=== PATIENT | female | born 1970 | race Caucasian/White ===

== ENCOUNTER 2016-03-20 13:59 | Emergency (ER) | payer OTHER ==
[2016-03-20] MEDS ORDERED: METOCLOPRAMIDE INJ 10MG/2ML VIAL (J2765) As Ordered ONE (15:01)
[2016-03-20] MEDS ORDERED: diphenhydrAMINE INJ 50MG/ML VIAL (J1200) As Ordered ONE (15:02)
[2016-03-20] MEDS ORDERED: GASTROGRAFIN SOLUTION 30ML (Q9963) As Ordered ONE (15:10)
[2016-03-20 15:29] LABS: BASO % 0.3 % (0.0-1.0); EOS # 0.1 K/mm3 (0.0-0.50); EOS % 0.9 % (0.0-3.0); LARGE UNSTAINED CELL # 0.2 K/mm3 (0.0-0.4); LARGE UNSTAINED CELL % 1.7 % (0.0-4.0); LYMPH # 1.6 K/mm3 (1.5-4.5); LYMPH % 17.7 % (24.0-44.0); MEAN CORPUSCULAR HEMOGLOBIN 30.9 pg (27.0-33.0); MEAN CORPUSCULAR HGB CONC 33.7 g/dl (32.0-36.5); MEAN CORPUSCULAR VOLUME 91.8 fl (80.0-96.0); MONO # 0.4 K/mm3 (0.0-0.8); MONO % 4.6 % (0.0-5.0); NEUTROPHILS # 6.9 K/mm3 (1.8-7.7); NEUTROPHILS % 74.7 % (36.0-66.0); PLATELET COUNT, AUTOMATED 223 k/mm3 (150-450); RED CELL DISTRIBUTION WIDTH 12.3 % (11.5-14.5); WHITE BLOOD COUNT 9.2 K/mm3 (4.0-10.0)
[2016-03-20 15:51] LABS: ALBUMIN 3.5 GM/DL (3.2-5.2); ALBUMIN/GLOBULIN RATIO 0.95 (1.00-1.93); ALKALINE PHOSPHATASE 71 U/L (45-117); ALT/SGPT 13 U/L (12-78); AMYLASE 61 U/L (25-115); ANION GAP 6 MEQ/L (8-16); AST/SGOT 9 U/L (15-37); BILIRUBIN,DIRECT < 0.1 MG/DL (0.0-0.2); BILIRUBIN,TOTAL 0.3 MG/DL (0.2-1.0); BLOOD UREA NITROGEN 6 MG/DL (7-18); CALCIUM LEVEL 8.6 MG/DL (8.5-10.1); CARBON DIOXIDE LEVEL 27 MEQ/L (21-32); CHLORIDE LEVEL 108 MEQ/L (98-107); CREATININE FOR GFR 0.66 MG/DL (0.55-1.02); GLOMERULAR FILTRATION RATE > 60.0 (>58); GLUCOSE, FASTING 99 MG/DL (70-105); POTASSIUM SERUM 3.3 MEQ/L (3.5-5.1); SODIUM LEVEL 141 MEQ/L (136-145); TOTAL PROTEIN 7.2 GM/DL (6.4-8.2)
[2016-03-20] MEDS ORDERED: ISOVUE-370 76% 100ML VIAL (Q9967) As Ordered ONE (16:43)
--- NOTE | 2016-03-20 17:44 | REP ---
CT study of the abdomen pelvis with IV and oral contrast: History: Abdominal pain. Comparison study: 11/29/2011. CT contrast dose: 100 mL of Isovue-[address] findings: Digital appraiser auditor views of the abdomen demonstrate tubal ligation bands bilaterally in the pelvis. Bowel gas pattern is unremarkable. The lung bases are clear. The liver and the spleen are normal in size homogeneous in texture. Gallbladder is unremarkable. No pancreatic abnormality is observed. No adrenal lesion is seen. The kidneys enhance symmetrically are morphologically intact. No retroperitoneal mass or adenopathy is seen. Normal caliber aorta is seen. Small and large bowel loops are normal in the upper abdomen. Pelvic CT images demonstrate a loop of left colon at the descending colon splenic flexure junction involving mural thickening and pericolonic fat stranding. There are two or three diverticula seen in this segment and the findings are compatible with diverticulitis. There is no visible abscess. There is one droplet of contained air in the pericolonic mesenteric fat. There is a cyst in the left ovary measuring 3.4 cm in greatest diameter. A smaller cystic area seen in the right ovary. A retroverted retroflexed uterus is seen. Urinary bladder is unremarkable. A small quantity of cul-de-sac fluid is seen. No abdominal wall defect is seen. Bone window settings show no bony destructive lesion. Impression: CT findings compatible with acute diverticulitis of the left colon at the descending sigmoid junction without evidence of abscess or free air. Moderate mural thickening and pericolonic edema are seen. Signed by Dewayne Lazo MD 03/21/2016 09:54 A
[2016-03-20] MEDS ORDERED: CIPROFLOXACIN 500 MG TAB As Ordered ONE (17:56)
[2016-03-20] MEDS ORDERED: metroNIDAZOLE (FLAGYL) 250 MG TAB As Ordered ONE (17:56)
--- NOTE | 2016-03-20 18:25 | EDDOCDS ---
Physician Documentation [facility] Name: Traci Gonzalez Age: 45 yrs Sex: Female : 1970 Arrival Date: 03/20/2016 Time: 13:59 Bed I4 / M4 Private MD: Garret Jones R. Disposition: 03/20/16 17:53 Discharged to Home/Self Care. Impression: Diverticulitis of large intestine without perforation or abscess without bleeding. - Condition is Stable. - Discharge Instructions: Clear Liquid Diet, Diverticulitis. - Prescriptions for Cipro 500 mg Oral Tablet - take 1 tablet by ORAL route every 12 hours for 10 days; 19 tablet. Flagyl 500 mg Oral Tablet - take 1 tablet by ORAL route every 8 hours for 10 days; 29 tablet. Ultram 50 mg Oral Tablet - take 1 tablet by ORAL route every 6 hours As needed MDD: 4 tabs; 20 tablet. - Medication Reconciliation, Local Pharmacy Hours, Work Release Form - 3 day form. - Follow up: Arturo Wayne DO; When: 1 week; Reason: Recheck today's complaints. Follow up: Emergency Department; When: As needed; Reason: Fever > 102F, Worsening of conditions. - Problem is new. - Symptoms have improved. - Notes: may use tylenol or ibuprofen as needed for pain Historical: - Allergies: PENICILLINS; - Home Meds: 1. atorvastatin 40 mg oral tab 1 tab once daily - PMHx: Hypercholesterolemia; - PSHx: Appendectomy; Tubal ligation; - Social history: Smoking status: Patient states was never smoker of tobacco. No barriers to communication noted, The patient speaks fluent Zimbabwean, Speaks appropriately for age. - Family history: Not pertinent. - : The pt / caregiver states he / she is not on anticoagulants. Home medication list is obtained from the patient. - Exposure Risk Screening:: None identified. 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 1 in. (154.94 cm) (R); Pain 6/10; 18:07 BP 141 / 95; Pulse 70; Resp 20; Temp 97.3(O); Pulse Ox 97% on R/A; Pain 4/10; jml1 14:01 Body Mass Index 24.19 (58.06 kg, 154.94 cm) gr2 MDM: 14:53 NS 0.9% 1000 ml IV at bolus once ordered. btw 14:53 IV Saline Lock ordered. btw 14:53 Undress patient appropriately for examination ordered. btw 14:53 Metoclopramide 20 mg IV at 80 mg/hr once over 15 mins ordered. btw 14:53 diphenhydrAMINE 50 mg IVP once ordered. btw 14:54 CT ABD & PELVIS: IV and Oral Contrast Ordered. EDMS 14:54 NOTHING BY MOUTH+DIET ordered. EDMS 14:54 Amylase Ordered. EDMS 14:54 Basic Metabolic Profile Ordered. EDMS 14:54 CBC with Diff Ordered. EDMS 14:54 Lipase Ordered. EDMS 14:55 Liver Profile Ordered. EDMS 14:55 Urinalysis Ordered. EDMS 14:55 Urine Culture Ordered. EDMS 15:28 Diatrizoate Meglumine & Sodium Liquid 10 ml PO once; mix in 290cc of water ordered. jmk 15:59 Basic Metabolic Profile Reviewed. btw 15:59 CBC with Diff Reviewed. btw 15:59 Liver Profile Reviewed. btw 15:59 Urinalysis Reviewed. btw 15:59 Amylase Reviewed. btw 15:59 Lipase Reviewed. btw 16:43 Financial registration complete. zo 16:49 [facility] Payment Agreement was scanned into [employer] and attached to record. zo 17:46 Ciprofloxacin 500 mg PO once ordered. ar2 17:46 metroNIDAZOLE 500 mg PO once ordered. ar2 Administered Medications: 15:15 Drug: Diatrizoate Meglumine & Sodium 10 ml [diatrizoate meglumine and diat.sodium 66 jmk %-10 % oral solution (10 mL)] Route: PO; 15:27 Drug: NS 0.9% 1000 ml [sodium chloride 0.9 % intravenous solution] Route: IV; Rate: kc3 bolus; Site: right antecubital; 15:27 Drug: Metoclopramide 20 mg [metoclopramide 5 mg/mL injection solution] Route: IV; Rate: kc3 80 mg/hr; Infused Over: 15 mins; Site: right antecubital; 15:56 Follow up: IV Status: Completed infusion kc3 15:27 Drug: diphenhydrAMINE 50 mg [diphenhydramine 50 mg/mL injection solution (1 mL)] Route: kc3 IVP; Site: right antecubital; 15:57 Follow up: Response: Pain is decreased kc3 18:17 Drug: metroNIDAZOLE 500 mg [metronidazole 250 mg tablet (2 tabs)] Route: PO; kc3 18:18 Drug: Ciprofloxacin 500 mg [ciprofloxacin 500 mg tablet (1 tabs)] Route: PO; kc3 Signatures: Dispatcher [employer] EDAnupam Lucio,RN RN Rosanna Mcwilliams RN RN ck1 Ruddy Sheth Aaron, PA-C PAMayra ar2 Jayden Garcia PA PA btw Crane, Kelsi,RN RN kc3 The chart was reviewed and I authenticate all verbal orders and agree with the evaluation and treatment provided.Attachments: 16:49 [facility] Payment Agreement zo MTDD
--- NOTE | 2016-03-20 18:25 | EDDOCDS ---
Nurse's Notes [facility] Name: Traci Gonzalez Age: 45 yrs Sex: Female : 1970 Arrival Date: 03/20/2016 Time: 13:59 Bed I4 / M4 Private MD: Garret Jones R. Diagnosis: Diverticulitis of large intestine without perforation or abscess without bleeding Presentation: 03/20 14:03 Presenting complaint: Patient states: Lower abdominal pain since Friday. Sent from [address] Risk factors: the patient reports no vaginal bleeding. Adult Sepsis Screening: The patient does not have new or worsening altered mentation. Patient's respiratory rate is less than 22. Systolic blood pressure is greater than 100. Patient has a qSOFA score of 0- Negative Sepsis Screen. Suicide/Homicide risk assessment- the patient denies having any suicidal and/or homicidal ideations and does not present with any other emotional, behavioral or mental health complaints. 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 Transition of care: patient was not received from another setting of care. 14:03 Acuity: ABBEY Level 3 [facility] 14:03 Method Of Arrival: Walkin/Carried/Asstd [facility] Triage Assessment: 14:05 General: Appears in no apparent distress, comfortable, Behavior is appropriate for age, ck1 cooperative. Pain: Location: right lower quadrant and left lower quadrant Pain currently is 6 out of 10 on a pain scale. HIV screening NA for this visit Offered previously. Neurological: No deficits noted. Respiratory: Respiratory effort is unlabored, Respiratory pattern is regular, symmetrical. GI: Denies constipation, diarrhea, nausea, vomiting. : Denies burning with urination, urinary frequency, vaginal bleeding. Derm: Skin is pink, warm & dry. LOOM CHECKER: 14:05 LMP 03/14/2016 [facility] Historical: - Allergies: PENICILLINS; - Home Meds: 1. atorvastatin 40 mg oral tab 1 tab once daily - PMHx: Hypercholesterolemia; - PSHx: Appendectomy; Tubal ligation; - Social history: Smoking status: Patient states was never smoker of tobacco. No barriers to communication noted, The patient speaks fluent Turkish, Speaks appropriately for age. - Family history: Not pertinent. - : The pt / caregiver states he / she is not on anticoagulants. Home medication list is obtained from the patient. - Exposure Risk Screening:: None identified. Screenin:28 Screening information is obtained from the patient. Fall risk: No risks identified. kc3 Assistance ADL's: requires no assistance with activities of daily living. Abuse/DV Screen: The patient / caregiver reports he/she is: not in a situation that causes fear, pain or injury. Nutritional screening: No deficits noted. Advance Directives: Currently, there is no health care proxy. home support is adequate. Assessment: 15:27 General: Appears in no apparent distress, comfortable, Behavior is appropriate for age, kc3 cooperative. Pain: Location: abdomen Pain currently is 7 out of 10 on a pain scale. Neurological: Level of Consciousness is awake, alert, obeys commands, Oriented to person, place, time. Respiratory: Airway is patent Respiratory effort is even, unlabored. GI: Abdomen is flat, Bowel sounds present X 4 quads. Abd is soft Abd is tender to palpation. Derm: Skin is pink, warm & dry. 16:45 General: Appears in no apparent distress, comfortable, Behavior is appropriate for age, kc3 cooperative. Pain: Location: abdomen. Neurological: Level of Consciousness is awake, alert, obeys commands, Oriented to person, place, time. Respiratory: Respiratory effort is even, unlabored. Derm: Skin is pink, warm & dry. 17:30 Reassessment: Patient appears in no apparent distress at this time. Patient states kc3 feeling better. 18:19 General: Appears in no apparent distress, comfortable, Behavior is appropriate for age, kc3 cooperative. Neurological: Level of Consciousness is awake, alert, obeys commands. Respiratory: Respiratory effort is even, unlabored. Derm: Skin is pink, warm & dry. Vital Signs: 14:01 BP 145 / 85; Pulse 80; Resp 18 S; Temp 98.7(O); Pulse Ox 98% on R/A; Weight 58.06 kg gr2 (R); Height 5 ft. 1 in. (154.94 cm) (R); Pain 6/10; 18:07 BP 141 / 95; Pulse 70; Resp 20; Temp 97.3(O); Pulse Ox 97% on R/A; Pain 4/10; jml1 14:01 Body Mass Index 24.19 (58.06 kg, 154.94 cm) gr2 Vitals: 14:01 Log In Time: March 20, 2016 at 14:01. gr2 ED Course: 14:00 Patient visited by Cl Noonan. gr2 14:00 Patient moved to Waiting gr2 14:01 Garret Jones is Private Physician. gr2 14:02 Patient visited by Cl Noonan. gr2 14:02 Patient moved to Pre RCE gr2 14:04 Triage Initiated ck1 14:36 Patient moved to Triage 2 jf3 14:47 Jayden Garcia PA is PHCP. btw 14:47 Brendon Rodriguez MD is Attending Physician. btw 14:47 Patient visited by Jayden Garcia PA. btw 14:54 Patient moved to I4 / M4 nb2 15:26 Amylase Sent. kc3 15:26 Basic Metabolic Profile Sent. kc3 15:26 CBC with Diff Sent. kc3 15:26 Lipase Sent. kc3 15:26 Liver Profile Sent. kc3 15:26 Urinalysis Sent. kc3 15:26 Urine Culture Sent. kc3 15:28 Patient visited by Beth Jacome RN. kc3 15:28 The patient / caregiver is instructed regarding the plan of care and ED course. kc3 15:28 Inserted saline lock: 20 gauge in right antecubital area and blood collected. The kc3 patient tolerated the procedure well. Labs drawn. (by ED staff). Sent per order to lab. 16:05 PHCP role handed off by Jayden Garcia PA ar2 16:05 Alphonse Perla PA-C is PHCP. ar2 16:06 Patient visited by Beth Jacome RN. kc3 16:47 Patient name changed from Culleen\S\\S\Mandigo\S\ to Culleen\S\ \S\Mandigo. EDMS 16:49 [facility] Payment Agreement was scanned into [employer] and attached to record. zo 17:12 Patient visited by Melvin Aguilar. jml1 17:53 Arturo Wayne DO is Referral Physician. ar2 18:07 Patient visited by Melvin Aguilar. jml1 18:18 CT ABD & PELVIS: IV and Oral Contrast Returned. EDMS 18:19 Discontinued IV lock intact, bleeding controlled, pressure dressing applied, No kc3 redness/swelling at site. No procedures done that require assistance. Administered Medications: 15:15 Drug: Diatrizoate Meglumine & Sodium 10 ml [diatrizoate meglumine and diat.sodium 66 jmk %-10 % oral solution (10 mL)] Route: PO; 15:27 Drug: NS 0.9% 1000 ml [sodium chloride 0.9 % intravenous solution] Route: IV; Rate: kc3 bolus; Site: right antecubital; 15:27 Drug: Metoclopramide 20 mg [metoclopramide 5 mg/mL injection solution] Route: IV; Rate: kc3 80 mg/hr; Infused Over: 15 mins; Site: right antecubital; 15:56 Follow up: IV Status: Completed infusion kc3 15:27 Drug: diphenhydrAMINE 50 mg [diphenhydramine 50 mg/mL injection solution (1 mL)] Route: kc3 IVP; Site: right antecubital; 15:57 Follow up: Response: Pain is decreased kc3 18:17 Drug: metroNIDAZOLE 500 mg [metronidazole 250 mg tablet (2 tabs)] Route: PO; kc3 18:18 Drug: Ciprofloxacin 500 mg [ciprofloxacin 500 mg tablet (1 tabs)] Route: PO; kc3 Order Results: Lab Order: Amylase; SPEC'M 03/20/16 15:18 Test: AMYLASE; Value: 61; Range: 25-115; Units: U/L; Status: F Lab Order: Basic Metabolic Profile; SPEC'M 03/20/16 15:18 Test: GLUCOSE, FASTING; Value: 99; Range: 70-105; Units: MG/DL; Status: F Test: BLOOD UREA NITROGEN; Value: 6; Range: 7-18; Abnormal: Below low normal; Units: MG/DL; Status: F Test: CREATININE FOR GFR; Value: 0.66; Range: 0.55-1.02; Units: MG/DL; Status: F Test: GLOMERULAR FILTRATION RATE; Value: > 60.0; Range: >58; Status: F Test: SODIUM LEVEL; Value: 141; Range: 136-145; Units: MEQ/L; Status: F Test: POTASSIUM SERUM; Value: 3.3; Range: 3.5-5.1; Abnormal: Below low normal; Units: MEQ/L; Status: F Test: CHLORIDE LEVEL; Value: 108; Range: 98-107; Abnormal: Above high normal; Units: MEQ/L; Status: F Test: CARBON DIOXIDE LEVEL; Value: 27; Range: 21-32; Units: MEQ/L; Status: F Test: ANION GAP; Value: 6; Range: 8-16; Abnormal: Below low normal; Units: MEQ/L; Status: F Test: CALCIUM LEVEL; Value: 8.6; Range: 8.5-10.1; Units: MG/DL; Status: F Test Note: ; Units are mL/min/1.73 m2 Chronic Kidney Disease Staging per NKF: Stage I & II GFR >=60 Normal to Mildly Decreased Stage III GFR 30-59 Moderately Decreased Stage IV GFR 15-29 Severely Decreased Stage V GFR <15 Very Little GFR Left ESRD GFR <15 on DIGITAL MEDIA REPRESENTATIVE Lab Order: CBC with Diff; SPEC'M 03/20/16 15:18 Test: WHITE BLOOD COUNT; Value: 9.2; Range: 4.0-10.0; Units: K/mm3; Status: F Test: RED BLOOD COUNT; Value: 4.11; Range: 4.00-5.40; Units: M/mm3; Status: F Test: HEMOGLOBIN; Value: 12.7; Range: 12.0-16.0; Units: g/dl; Status: F Test: HEMATOCRIT; Value: 37.7; Range: 36.0-47.0; Units: %; Status: F Test: MEAN CORPUSCULAR VOLUME; Value: 91.8; Range: 80.0-96.0; Units: fl; Status: F Test: MEAN CORPUSCULAR HEMOGLOBIN; Value: 30.9; Range: 27.0-33.0; Units: pg; Status: F Test: MEAN CORPUSCULAR HGB CONC; Value: 33.7; Range: 32.0-36.5; Units: g/dl; Status: F Test: RED CELL DISTRIBUTION WIDTH; Value: 12.3; Range: 11.5-14.5; Units: %; Status: F Test: PLATELET COUNT, AUTOMATED; Value: 223; Range: 150-450; Units: k/mm3; Status: F Test: NEUTROPHILS %; Value: 74.7; Range: 36.0-66.0; Abnormal: Above high normal; Units: %; Status: F Test: LYMPH %; Value: 17.7; Range: 24.0-44.0; Abnormal: Below low normal; Units: %; Status: F Test: MONO %; Value: 4.6; Range: 0.0-5.0; Units: %; Status: F Test: EOS %; Value: 0.9; Range: 0.0-3.0; Units: %; Status: F Test: BASO %; Value: 0.3; Range: 0.0-1.0; Units: %; Status: F Test: LARGE UNSTAINED CELL %; Value: 1.7; Range: 0.0-4.0; Units: %; Status: F Test: NEUTROPHILS #; Value: 6.9; Range: 1.8-7.7; Units: K/mm3; Status: F Test: LYMPH #; Value: 1.6; Range: 1.5-4.5; Units: K/mm3; Status: F Test: MONO #; Value: 0.4; Range: 0.0-0.8; Units: K/mm3; Status: F Test: EOS #; Value: 0.1; Range: 0.0-0.50; Units: K/mm3; Status: F Test: BASO #; Value: 0.0; Range: 0.0-0.2; Units: K/mm3; Status: F Test: LARGE UNSTAINED CELL #; Value: 0.2; Range: 0.0-0.4; Units: K/mm3; Status: F Lab Order: Lipase; SPEC' 03/20/16 15:18 Test: LIPASE; Value: 207; Range: 73-393; Units: U/L; Status: F Lab Order: Liver Profile; SPEC'M 03/20/16 15:18 Test: AST/SGOT; Value: 9; Range: 15-37; Abnormal: Below low normal; Units: U/L; Status: F Test: ALT/SGPT; Value: 13; Range: 12-78; Units: U/L; Status: F Test: ALKALINE PHOSPHATASE; Value: 71; Range: 45-117; Units: U/L; Status: F Test: BILIRUBIN,TOTAL; Value: 0.3; Range: 0.2-1.0; Units: MG/DL; Status: F Test: BILIRUBIN,DIRECT; Value: < 0.1; Range: 0.0-0.2; Units: MG/DL; Status: F Test: TOTAL PROTEIN; Value: 7.2; Range: 6.4-8.2; Units: GM/DL; Status: F Test: ALBUMIN; Value: 3.5; Range: 3.2-5.2; Units: GM/DL; Status: F Test: ALBUMIN/GLOBULIN RATIO; Value: 0.95; Range: 1.00-1.93; Abnormal: Below low normal; Status: F Lab Order: Urinalysis; SPEC'M 03/20/16 15:16 Test: APPEARANCE, URINE; Value: CLEAR; Range: CLEAR; Status: F Test: COLOR, URINE; Value: STRAW; Range: YELLOW; Status: F Test: PH,URINE; Value: 7.0; Range: 5.0-9.0; Units: UNITS; Status: F Test: SPECIFIC GRAVITY URINE AUTO; Value: 1.004; Range: 1.002-1.035; Status: F Test: PROTEIN, URINE AUTO; Value: NEGATIVE; Range: NEGATIVE; Units: mg/dL; Status: F Test: GLUCOSE, URINE (UA) AUTO; Value: 1+; Range: NEGATIVE; Abnormal: Above high normal; Units: mg/dL; Status: F Test: KETONE, URINE AUTO; Value: NEGATIVE; Range: NEGATIVE; Units: mg/dL; Status: F Test: UROBILINOGEN, URINE AUTO; Value: 0.2; Range: 0.0-2.0; Units: mg/dL; Status: F Test: BILIRUBIN, URINE AUTO; Value: NEGATIVE; Range: NEGATIVE; Status: F Test: NITRITE, URINE AUTO; Value: NEGATIVE; Range: NEGATIVE; Status: F Test: LEUKOCYTE ESTERASE, URINE AUTO; Value: TRACE; Range: NEGATIVE; Abnormal: Above high normal; Status: F Test: BLOOD, URINE BLOOD; Value: 1+; Range: NEGATIVE; Abnormal: Above high normal; Status: F Test: WBC, URINE AUTO; Value: 2; Range: 0-3; Units: /HPF; Status: F Test: RBC, URINE AUTO; Value: 1; Range: 0-3; Units: /HPF; Status: F Test: BACTERIA, URINE AUTO; Value: 1+; Range: NEGATIVE; Abnormal: Above high normal; Status: F Test: SQUAMOUS EPITHELIAL CELL UR AU; Value: 3; Range: 0-6; Units: /HPF; Status: F Test: MUCUS, URINE; Value: SMALL; Range: NEGATIVE; Status: F Test: HYALINE CAST, URINE AUTO; Value: 0; Range: 0-1; Units: /LPF; Status: F Radiology Order: CT ABD & PELVIS: IV and Oral Contrast Test: CT ABD & PELVIS: IV and Oral Contrast REASON FOR EXAMINATION: Abdomen Pain; CT study of the abdomen pelvis with IV and oral contrast:; ; History: Abdominal pain.; ; Comparison study: 11/29/2011.; ; CT contrast dose: 100 mL of Isovue-370 is administered intravenously.; ; CT findings: Digital stretch box tender views of the abdomen demonstrate tubal ligation bands; bilaterally in the pelvis. Bowel gas pattern is unremarkable. The lung bases; are clear. The liver and the spleen are normal in size homogeneous in texture.; Gallbladder is unremarkable. No pancreatic abnormality is observed. No adrenal; lesion is seen. The kidneys enhance symmetrically are morphologically intact.; No retroperitoneal mass or adenopathy is seen. Normal caliber aorta is seen.; Small and large bowel loops are normal in the upper abdomen.; ; Pelvic CT images demonstrate a loop of left colon at the descending colon splenic; flexure junction involving mural thickening and pericolonic fat stranding. There; are two or three diverticuli seen in this segment and the findings are compatible; with diverticulitis. There is no visible abscess. There is one droplet of; contained air in the pericolonic mesenteric fat.; ; There is a cyst in the left ovary measuring 3.4 cm in greatest diameter. A; smaller cystic area seen in the right ovary. A retroverted retroflexed uterus is; seen. Urinary bladder is unremarkable. A small quantity of cul-de-sac fluid is; seen.; ; No abdominal wall defect is seen. Bone window settings show no bony destructive; lesion.; ; Impression:; ; CT findings compatible with acute diverticulitis of the left colon at the; descending sigmoid junction without evidence of abscess or free air. Moderate; mural thickening and pericolonic edema are seen.; ; ; ; ; Unreviewed; Outcome: 17:53 Discharge ordered by Provider. ar2 18:20 Discharge Assessment: Patient awake, alert and oriented x 3. No cognitive and/or kc3 functional deficits noted. Patient verbalized understanding of disposition instructions. patient administered narcotics - no. The following High Risk Discharge criteria are identified: None. Discharged to home ambulatory. Condition: stable. Discharge instructions given to patient, Instructed on discharge instructions, follow up and referral plans. medication usage, Demonstrated understanding of instructions, medications, Pt was receptive of discharge instructions/ teaching. Prescriptions given X 3. CT Study completed. Property :Personal belongings accompany Pt. 18:24 Patient left the ED. kc3 Signatures: Dispatcher [employer] EDMS Anupam Vines,RN RN jmk Rosanna Koenig,RN RN ck1 Ruddy Sheth Aaron PA-C PA-Basilio [email or web address] Jayden Garcia PA PA btw Traver, Jamie jml1 Cl Noonan2 Beth Jacome RN RN kc3 Tyrone Vega,RN RN jf3 Margie Thomas2 ZENIA
--- NOTE | 2016-03-20 18:50 | EDDOCDS ---
Physician Documentation [facility] Name: Traci Gonzalez Age: 45 yrs Sex: Female : 1970 Arrival Date: 03/20/2016 Time: 13:59 Bed I4 / M4 Private MD: Garret Jones R. Disposition: 03/20/16 17:53 Discharged to Home/Self Care. Impression: Diverticulitis of large intestine without perforation or abscess without bleeding. - Condition is Stable. - Discharge Instructions: Clear Liquid Diet, Diverticulitis. - Prescriptions for Cipro 500 mg Oral Tablet - take 1 tablet by ORAL route every 12 hours for 10 days; 19 tablet. Flagyl 500 mg Oral Tablet - take 1 tablet by ORAL route every 8 hours for 10 days; 29 tablet. Ultram 50 mg Oral Tablet - take 1 tablet by ORAL route every 6 hours As needed MDD: 4 tabs; 20 tablet. - Medication Reconciliation, Local Pharmacy Hours, Work Release Form - 3 day form. - Follow up: Arturo Wayne DO; When: 1 week; Reason: Recheck today's complaints. Follow up: Emergency Department; When: As needed; Reason: Fever > 102F, Worsening of conditions. - Problem is new. - Symptoms have improved. - Notes: may use tylenol or ibuprofen as needed for pain Historical: - Allergies: PENICILLINS; - Home Meds: 1. atorvastatin 40 mg oral tab 1 tab once daily - PMHx: Hypercholesterolemia; - PSHx: Appendectomy; Tubal ligation; - Social history: Smoking status: Patient states was never smoker of tobacco. No barriers to communication noted, The patient speaks fluent Gibraltarian, Speaks appropriately for age. - Family history: Not pertinent. - : The pt / caregiver states he / she is not on anticoagulants. Home medication list is obtained from the patient. - Exposure Risk Screening:: None identified. 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 1 in. (154.94 cm) (R); Pain 6/10; 18:07 BP 141 / 95; Pulse 70; Resp 20; Temp 97.3(O); Pulse Ox 97% on R/A; Pain 4/10; jml1 14:01 Body Mass Index 24.19 (58.06 kg, 154.94 cm) gr2 MDM: 14:53 NS 0.9% 1000 ml IV at bolus once ordered. btw 14:53 IV Saline Lock ordered. btw 14:53 Undress patient appropriately for examination ordered. btw 14:53 Metoclopramide 20 mg IV at 80 mg/hr once over 15 mins ordered. btw 14:53 diphenhydrAMINE 50 mg IVP once ordered. btw 14:54 CT ABD & PELVIS: IV and Oral Contrast Ordered. EDMS 14:54 NOTHING BY MOUTH+DIET ordered. EDMS 14:54 Amylase Ordered. EDMS 14:54 Basic Metabolic Profile Ordered. EDMS 14:54 CBC with Diff Ordered. EDMS 14:54 Lipase Ordered. EDMS 14:55 Liver Profile Ordered. EDMS 14:55 Urinalysis Ordered. EDMS 14:55 Urine Culture Ordered. EDMS 15:28 Diatrizoate Meglumine & Sodium Liquid 10 ml PO once; mix in 290cc of water ordered. jmk 15:59 Basic Metabolic Profile Reviewed. btw 15:59 CBC with Diff Reviewed. btw 15:59 Liver Profile Reviewed. btw 15:59 Urinalysis Reviewed. btw 15:59 Amylase Reviewed. btw 15:59 Lipase Reviewed. btw 16:43 Financial registration complete. zo 16:49 [facility] Payment Agreement was scanned into [employer] and attached to record. zo 17:46 Ciprofloxacin 500 mg PO once ordered. ar2 17:46 metroNIDAZOLE 500 mg PO once ordered. ar2 Administered Medications: 15:15 Drug: Diatrizoate Meglumine & Sodium 10 ml [diatrizoate meglumine and diat.sodium 66 jmk %-10 % oral solution (10 mL)] Route: PO; 15:27 Drug: NS 0.9% 1000 ml [sodium chloride 0.9 % intravenous solution] Route: IV; Rate: kc3 bolus; Site: right antecubital; 15:27 Drug: Metoclopramide 20 mg [metoclopramide 5 mg/mL injection solution] Route: IV; Rate: kc3 80 mg/hr; Infused Over: 15 mins; Site: right antecubital; 15:56 Follow up: IV Status: Completed infusion kc3 15:27 Drug: diphenhydrAMINE 50 mg [diphenhydramine 50 mg/mL injection solution (1 mL)] Route: kc3 IVP; Site: right antecubital; 15:57 Follow up: Response: Pain is decreased kc3 18:17 Drug: metroNIDAZOLE 500 mg [metronidazole 250 mg tablet (2 tabs)] Route: PO; kc3 18:18 Drug: Ciprofloxacin 500 mg [ciprofloxacin 500 mg tablet (1 tabs)] Route: PO; kc3 Signatures: Dispatcher [employer] EDAnupam Lucio,RN RN Rosanna Mcwilliams RN RN ck1 Ruddy Sheth Aaron, PA-C PAMayra ar2 Jayden Garcia PA PA btw Crane, Kelsi,RN RN kc3 The chart was reviewed and I authenticate all verbal orders and agree with the evaluation and treatment provided.Attachments: 16:49 [facility] Payment Agreement zo MTDD
--- NOTE | 2016-03-20 18:50 | EDDOCDS ---
Nurse's Notes [facility] Name: Traci Gonzalez Age: 45 yrs Sex: Female : 1970 Arrival Date: 03/20/2016 Time: 13:59 Bed I4 / M4 Private MD: Garret Jones R. Diagnosis: Diverticulitis of large intestine without perforation or abscess without bleeding Presentation: 03/20 14:03 Presenting complaint: Patient states: Lower abdominal pain since Friday. Sent from [address] Risk factors: the patient reports no vaginal bleeding. Adult Sepsis Screening: The patient does not have new or worsening altered mentation. Patient's respiratory rate is less than 22. Systolic blood pressure is greater than 100. Patient has a qSOFA score of 0- Negative Sepsis Screen. Suicide/Homicide risk assessment- the patient denies having any suicidal and/or homicidal ideations and does not present with any other emotional, behavioral or mental health complaints. 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 Transition of care: patient was not received from another setting of care. 14:03 Acuity: ABBEY Level 3 [facility] 14:03 Method Of Arrival: Walkin/Carried/Asstd [facility] Triage Assessment: 14:05 General: Appears in no apparent distress, comfortable, Behavior is appropriate for age, ck1 cooperative. Pain: Location: right lower quadrant and left lower quadrant Pain currently is 6 out of 10 on a pain scale. HIV screening NA for this visit Offered previously. Neurological: No deficits noted. Respiratory: Respiratory effort is unlabored, Respiratory pattern is regular, symmetrical. GI: Denies constipation, diarrhea, nausea, vomiting. : Denies burning with urination, urinary frequency, vaginal bleeding. Derm: Skin is pink, warm & dry. 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 atorvastatin 40 mg oral tab 1 tab once daily - PMHx: Hypercholesterolemia; - PSHx: Appendectomy; Tubal ligation; - Social history: Smoking status: Patient states was never smoker of tobacco. No barriers to communication noted, The patient speaks fluent Palauan, Speaks appropriately for age. - Family history: Not pertinent. - : The pt / caregiver states he / she is not on anticoagulants. Home medication list is obtained from the patient. - Exposure Risk Screening:: None identified. Screenin:28 Screening information is obtained from the patient. Fall risk: No risks identified. kc3 Assistance ADL's: requires no assistance with activities of daily living. Abuse/DV Screen: The patient / caregiver reports he/she is: not in a situation that causes fear, pain or injury. Nutritional screening: No deficits noted. Advance Directives: Currently, there is no health care proxy. home support is adequate. Assessment: 15:27 General: Appears in no apparent distress, comfortable, Behavior is appropriate for age, kc3 cooperative. Pain: Location: abdomen Pain currently is 7 out of 10 on a pain scale. Neurological: Level of Consciousness is awake, alert, obeys commands, Oriented to person, place, time. Respiratory: Airway is patent Respiratory effort is even, unlabored. GI: Abdomen is flat, Bowel sounds present X 4 quads. Abd is soft Abd is tender to palpation. Derm: Skin is pink, warm & dry. 16:45 General: Appears in no apparent distress, comfortable, Behavior is appropriate for age, kc3 cooperative. Pain: Location: abdomen. Neurological: Level of Consciousness is awake, alert, obeys commands, Oriented to person, place, time. Respiratory: Respiratory effort is even, unlabored. Derm: Skin is pink, warm & dry. 17:30 Reassessment: Patient appears in no apparent distress at this time. Patient states kc3 feeling better. 18:19 General: Appears in no apparent distress, comfortable, Behavior is appropriate for age, kc3 cooperative. Neurological: Level of Consciousness is awake, alert, obeys commands. Respiratory: Respiratory effort is even, unlabored. Derm: Skin is pink, warm & dry. Vital Signs: 14:01 BP 145 / 85; Pulse 80; Resp 18 S; Temp 98.7(O); Pulse Ox 98% on R/A; Weight 58.06 kg gr2 (R); Height 5 ft. 1 in. (154.94 cm) (R); Pain 6/10; 18:07 BP 141 / 95; Pulse 70; Resp 20; Temp 97.3(O); Pulse Ox 97% on R/A; Pain 4/10; jml1 14:01 Body Mass Index 24.19 (58.06 kg, 154.94 cm) gr2 Vitals: 14:01 Log In Time: March 20, 2016 at 14:01. gr2 ED Course: 14:00 Patient visited by Cl Noonan. gr2 14:00 Patient moved to Waiting gr2 14:01 Garret Jones is Private Physician. gr2 14:02 Patient visited by Cl Noonan. gr2 14:02 Patient moved to Pre RCE gr2 14:04 Triage Initiated ck1 14:36 Patient moved to Triage 2 jf3 14:47 Jayden Garcia PA is PHCP. btw 14:47 Brendon Rodriguez MD is Attending Physician. btw 14:47 Patient visited by Jayden Garcia PA. btw 14:54 Patient moved to I4 / M4 nb2 15:26 Amylase Sent. kc3 15:26 Basic Metabolic Profile Sent. kc3 15:26 CBC with Diff Sent. kc3 15:26 Lipase Sent. kc3 15:26 Liver Profile Sent. kc3 15:26 Urinalysis Sent. kc3 15:26 Urine Culture Sent. kc3 15:28 Patient visited by Beth Jacome RN. kc3 15:28 The patient / caregiver is instructed regarding the plan of care and ED course. kc3 15:28 Inserted saline lock: 20 gauge in right antecubital area and blood collected. The kc3 patient tolerated the procedure well. Labs drawn. (by ED staff). Sent per order to lab. 16:05 PHCP role handed off by Jayden Garcia PA ar2 16:05 Alphonse Perla PA-C is PHCP. ar2 16:06 Patient visited by Beth Jacome RN. kc3 16:47 Patient name changed from Culleen\S\\S\Mandigo\S\ to Culleen\S\ \S\Mandigo. EDMS 16:49 [facility] [place] Agreement was scanned into [employer] and attached to record. zo 17:12 Patient visited by Melvin Aguilar. jml1 17:53 Arturo Wayne DO is Referral Physician. ar2 18:07 Patient visited by Melvin Aguilar. jml1 18:18 CT ABD & PELVIS: IV and Oral Contrast Returned. EDMS 18:19 Discontinued IV lock intact, bleeding controlled, pressure dressing applied, No kc3 redness/swelling at site. No procedures done that require assistance. Administered Medications: 15:15 Drug: Diatrizoate Meglumine & Sodium 10 ml [diatrizoate meglumine and diat.sodium 66 jmk %-10 % oral solution (10 mL)] Route: PO; 15:27 Drug: NS 0.9% 1000 ml [sodium chloride 0.9 % intravenous solution] Route: IV; Rate: kc3 bolus; Site: right antecubital; 15:27 Drug: Metoclopramide 20 mg [metoclopramide 5 mg/mL injection solution] Route: IV; Rate: kc3 80 mg/hr; Infused Over: 15 mins; Site: right antecubital; 15:56 Follow up: IV Status: Completed infusion kc3 15:27 Drug: diphenhydrAMINE 50 mg [diphenhydramine 50 mg/mL injection solution (1 mL)] Route: kc3 IVP; Site: right antecubital; 15:57 Follow up: Response: Pain is decreased kc3 18:17 Drug: metroNIDAZOLE 500 mg [metronidazole 250 mg tablet (2 tabs)] Route: PO; kc3 18:18 Drug: Ciprofloxacin 500 mg [ciprofloxacin 500 mg tablet (1 tabs)] Route: PO; kc3 Order Results: Lab Order: Amylase; SPEC'M 03/20/16 15:18 Test: AMYLASE; Value: 61; Range: 25-115; Units: U/L; Status: F Lab Order: Basic Metabolic Profile; SPEC'M 03/20/16 15:18 Test: GLUCOSE, FASTING; Value: 99; Range: 70-105; Units: MG/DL; Status: F Test: BLOOD UREA NITROGEN; Value: 6; Range: 7-18; Abnormal: Below low normal; Units: MG/DL; Status: F Test: CREATININE FOR GFR; Value: 0.66; Range: 0.55-1.02; Units: MG/DL; Status: F Test: GLOMERULAR FILTRATION RATE; Value: > 60.0; Range: >58; Status: F Test: SODIUM LEVEL; Value: 141; Range: 136-145; Units: MEQ/L; Status: F Test: POTASSIUM SERUM; Value: 3.3; Range: 3.5-5.1; Abnormal: Below low normal; Units: MEQ/L; Status: F Test: CHLORIDE LEVEL; Value: 108; Range: 98-107; Abnormal: Above high normal; Units: MEQ/L; Status: F Test: CARBON DIOXIDE LEVEL; Value: 27; Range: 21-32; Units: MEQ/L; Status: F Test: ANION GAP; Value: 6; Range: 8-16; Abnormal: Below low normal; Units: MEQ/L; Status: F Test: CALCIUM LEVEL; Value: 8.6; Range: 8.5-10.1; Units: MG/DL; Status: F Test Note: ; Units are mL/min/1.73 m2 Chronic Kidney Disease Staging per NKF: Stage I & II GFR >=60 Normal to Mildly Decreased Stage III GFR 30-59 Moderately Decreased Stage IV GFR 15-29 Severely Decreased Stage V GFR <15 Very Little GFR Left ESRD GFR <15 on IMAGING MANAGER Lab Order: CBC with Diff; SPEC'M 03/20/16 15:18 Test: WHITE BLOOD COUNT; Value: 9.2; Range: 4.0-10.0; Units: K/mm3; Status: F Test: RED BLOOD COUNT; Value: 4.11; Range: 4.00-5.40; Units: M/mm3; Status: F Test: HEMOGLOBIN; Value: 12.7; Range: 12.0-16.0; Units: g/dl; Status: F Test: HEMATOCRIT; Value: 37.7; Range: 36.0-47.0; Units: %; Status: F Test: MEAN CORPUSCULAR VOLUME; Value: 91.8; Range: 80.0-96.0; Units: fl; Status: F Test: MEAN CORPUSCULAR HEMOGLOBIN; Value: 30.9; Range: 27.0-33.0; Units: pg; Status: F Test: MEAN CORPUSCULAR HGB CONC; Value: 33.7; Range: 32.0-36.5; Units: g/dl; Status: F Test: RED CELL DISTRIBUTION WIDTH; Value: 12.3; Range: 11.5-14.5; Units: %; Status: F Test: PLATELET COUNT, AUTOMATED; Value: 223; Range: 150-450; Units: k/mm3; Status: F Test: NEUTROPHILS %; Value: 74.7; Range: 36.0-66.0; Abnormal: Above high normal; Units: %; Status: F Test: LYMPH %; Value: 17.7; Range: 24.0-44.0; Abnormal: Below low normal; Units: %; Status: F Test: MONO %; Value: 4.6; Range: 0.0-5.0; Units: %; Status: F Test: EOS %; Value: 0.9; Range: 0.0-3.0; Units: %; Status: F Test: BASO %; Value: 0.3; Range: 0.0-1.0; Units: %; Status: F Test: LARGE UNSTAINED CELL %; Value: 1.7; Range: 0.0-4.0; Units: %; Status: F Test: NEUTROPHILS #; Value: 6.9; Range: 1.8-7.7; Units: K/mm3; Status: F Test: LYMPH #; Value: 1.6; Range: 1.5-4.5; Units: K/mm3; Status: F Test: MONO #; Value: 0.4; Range: 0.0-0.8; Units: K/mm3; Status: F Test: EOS #; Value: 0.1; Range: 0.0-0.50; Units: K/mm3; Status: F Test: BASO #; Value: 0.0; Range: 0.0-0.2; Units: K/mm3; Status: F Test: LARGE UNSTAINED CELL #; Value: 0.2; Range: 0.0-0.4; Units: K/mm3; Status: F Lab Order: Lipase; SPEC' 03/20/16 15:18 Test: LIPASE; Value: 207; Range: 73-393; Units: U/L; Status: F Lab Order: Liver Profile; SPEC'M 03/20/16 15:18 Test: AST/SGOT; Value: 9; Range: 15-37; Abnormal: Below low normal; Units: U/L; Status: F Test: ALT/SGPT; Value: 13; Range: 12-78; Units: U/L; Status: F Test: ALKALINE PHOSPHATASE; Value: 71; Range: 45-117; Units: U/L; Status: F Test: BILIRUBIN,TOTAL; Value: 0.3; Range: 0.2-1.0; Units: MG/DL; Status: F Test: BILIRUBIN,DIRECT; Value: < 0.1; Range: 0.0-0.2; Units: MG/DL; Status: F Test: TOTAL PROTEIN; Value: 7.2; Range: 6.4-8.2; Units: GM/DL; Status: F Test: ALBUMIN; Value: 3.5; Range: 3.2-5.2; Units: GM/DL; Status: F Test: ALBUMIN/GLOBULIN RATIO; Value: 0.95; Range: 1.00-1.93; Abnormal: Below low normal; Status: F Lab Order: Urinalysis; SPEC'M 03/20/16 15:16 Test: APPEARANCE, URINE; Value: CLEAR; Range: CLEAR; Status: F Test: COLOR, URINE; Value: STRAW; Range: YELLOW; Status: F Test: PH,URINE; Value: 7.0; Range: 5.0-9.0; Units: UNITS; Status: F Test: SPECIFIC GRAVITY URINE AUTO; Value: 1.004; Range: 1.002-1.035; Status: F Test: PROTEIN, URINE AUTO; Value: NEGATIVE; Range: NEGATIVE; Units: mg/dL; Status: F Test: GLUCOSE, URINE (UA) AUTO; Value: 1+; Range: NEGATIVE; Abnormal: Above high normal; Units: mg/dL; Status: F Test: KETONE, URINE AUTO; Value: NEGATIVE; Range: NEGATIVE; Units: mg/dL; Status: F Test: UROBILINOGEN, URINE AUTO; Value: 0.2; Range: 0.0-2.0; Units: mg/dL; Status: F Test: BILIRUBIN, URINE AUTO; Value: NEGATIVE; Range: NEGATIVE; Status: F Test: NITRITE, URINE AUTO; Value: NEGATIVE; Range: NEGATIVE; Status: F Test: LEUKOCYTE ESTERASE, URINE AUTO; Value: TRACE; Range: NEGATIVE; Abnormal: Above high normal; Status: F Test: BLOOD, URINE BLOOD; Value: 1+; Range: NEGATIVE; Abnormal: Above high normal; Status: F Test: WBC, URINE AUTO; Value: 2; Range: 0-3; Units: /HPF; Status: F Test: RBC, URINE AUTO; Value: 1; Range: 0-3; Units: /HPF; Status: F Test: BACTERIA, URINE AUTO; Value: 1+; Range: NEGATIVE; Abnormal: Above high normal; Status: F Test: SQUAMOUS EPITHELIAL CELL UR AU; Value: 3; Range: 0-6; Units: /HPF; Status: F Test: MUCUS, URINE; Value: SMALL; Range: NEGATIVE; Status: F Test: HYALINE CAST, URINE AUTO; Value: 0; Range: 0-1; Units: /LPF; Status: F Radiology Order: CT ABD & PELVIS: IV and Oral Contrast Test: CT ABD & PELVIS: IV and Oral Contrast REASON FOR EXAMINATION: Abdomen Pain; CT study of the abdomen pelvis with IV and oral contrast:; ; History: Abdominal pain.; ; Comparison study: 11/29/2011.; ; CT contrast dose: 100 mL of Isovue-370 is administered intravenously.; ; CT findings: Digital scouts views of the abdomen demonstrate tubal ligation bands; bilaterally in the pelvis. Bowel gas pattern is unremarkable. The lung bases; are clear. The liver and the spleen are normal in size homogeneous in texture.; Gallbladder is unremarkable. No pancreatic abnormality is observed. No adrenal; lesion is seen. The kidneys enhance symmetrically are morphologically intact.; No retroperitoneal mass or adenopathy is seen. Normal caliber aorta is seen.; Small and large bowel loops are normal in the upper abdomen.; ; Pelvic CT images demonstrate a loop of left colon at the descending colon splenic; flexure junction involving mural thickening and pericolonic fat stranding. There; are two or three diverticuli seen in this segment and the findings are compatible; with diverticulitis. There is no visible abscess. There is one droplet of; contained air in the pericolonic mesenteric fat.; ; There is a cyst in the left ovary measuring 3.4 cm in greatest diameter. A; smaller cystic area seen in the right ovary. A retroverted retroflexed uterus is; seen. Urinary bladder is unremarkable. A small quantity of cul-de-sac fluid is; seen.; ; No abdominal wall defect is seen. Bone window settings show no bony destructive; lesion.; ; Impression:; ; CT findings compatible with acute diverticulitis of the left colon at the; descending sigmoid junction without evidence of abscess or free air. Moderate; mural thickening and pericolonic edema are seen.; ; ; ; ; Unreviewed; Outcome: 17:53 Discharge ordered by Provider. ar2 18:20 Discharge Assessment: Patient awake, alert and oriented x 3. No cognitive and/or kc3 functional deficits noted. Patient verbalized understanding of disposition instructions. patient administered narcotics - no. The following High Risk Discharge criteria are identified: None. Discharged to home ambulatory. Condition: stable. Discharge instructions given to patient, Instructed on discharge instructions, follow up and referral plans. medication usage, Demonstrated understanding of instructions, medications, Pt was receptive of discharge instructions/ teaching. Prescriptions given X 3. CT Study completed. Property :Personal belongings accompany Pt. 18:24 Patient left the ED. kc3 18:49 Patient left the ED. kc3 Signatures: Dispatcher [employer] EDMS Anupam Vines,RN RN jmk Rosanna Koenig,RN RN ck1 Ruddy Sheth Aaron, PA-C PA-C ar2 Jayden Garcia PA PA btw Traver, Jamie jml1 Cl Noonan gr2 Beth Jacome RN RN kc3 Tyrone Vega,RN RN jf3 Margie Thomas2 ZENIA
--- NOTE | 2016-03-22 19:50 | EDDOCDS ---
Physician Documentation [facility] Name: Traci Gonzalez Age: 45 yrs Sex: Female : 1970 Arrival Date: 03/20/2016 Time: 13:59 Bed I4 / M4 Private MD: Garret Jones R. Disposition: 03/20/16 17:53 Discharged to Home/Self Care. Impression: Diverticulitis of large intestine without perforation or abscess without bleeding. - Condition is Stable. - Discharge Instructions: Clear Liquid Diet, Diverticulitis. - Prescriptions for Cipro 500 mg Oral Tablet - take 1 tablet by ORAL route every 12 hours for 10 days; 19 tablet. Flagyl 500 mg Oral Tablet - take 1 tablet by ORAL route every 8 hours for 10 days; 29 tablet. Ultram 50 mg Oral Tablet - take 1 tablet by ORAL route every 6 hours As needed MDD: 4 tabs; 20 tablet. - Medication Reconciliation, Local Pharmacy Hours, Work Release Form - 3 day form. - Follow up: Arturo Wayne DO; When: 1 week; Reason: Recheck today's complaints. Follow up: Emergency Department; When: As needed; Reason: Fever > 102F, Worsening of conditions. - Problem is new. - Symptoms have improved. - Notes: may use tylenol or ibuprofen as needed for pain Historical: - Allergies: PENICILLINS; - Home Meds: 1. atorvastatin 40 mg oral tab 1 tab once daily - PMHx: Hypercholesterolemia; - PSHx: Appendectomy; Tubal ligation; - Social history: Smoking status: Patient states was never smoker of tobacco. No barriers to communication noted, The patient speaks fluent Azerbaijani, Speaks appropriately for age. - Family history: Not pertinent. - : The pt / caregiver states he / she is not on anticoagulants. Home medication list is obtained from the patient. - Exposure Risk Screening:: None identified. 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 1 in. (154.94 cm) (R); Pain 6/10; 18:07 BP 141 / 95; Pulse 70; Resp 20; Temp 97.3(O); Pulse Ox 97% on R/A; Pain 4/10; jml1 14:01 Body Mass Index 24.19 (58.06 kg, 154.94 cm) gr2 MDM: 14:53 NS 0.9% 1000 ml IV at bolus once ordered. btw 14:53 IV Saline Lock ordered. btw 14:53 Undress patient appropriately for examination ordered. btw 14:53 Metoclopramide 20 mg IV at 80 mg/hr once over 15 mins ordered. btw 14:53 diphenhydrAMINE 50 mg IVP once ordered. btw 14:54 CT ABD & PELVIS: IV and Oral Contrast Ordered. EDMS 14:54 NOTHING BY MOUTH+DIET ordered. EDMS 14:54 Amylase Ordered. EDMS 14:54 Basic Metabolic Profile Ordered. EDMS 14:54 CBC with Diff Ordered. EDMS 14:54 Lipase Ordered. EDMS 14:55 Liver Profile Ordered. EDMS 14:55 Urinalysis Ordered. EDMS 14:55 Urine Culture Ordered. EDMS 15:28 Diatrizoate Meglumine & Sodium Liquid 10 ml PO once; mix in 290cc of water ordered. jmk 15:59 Basic Metabolic Profile Reviewed. btw 15:59 CBC with Diff Reviewed. btw 15:59 Liver Profile Reviewed. btw 15:59 Urinalysis Reviewed. btw 15:59 Amylase Reviewed. btw 15:59 Lipase Reviewed. btw 16:43 Financial registration complete. zo 16:49 [facility] [place] Agreement was scanned into [employer] and attached to record. zo 17:46 Ciprofloxacin 500 mg PO once ordered. ar2 17:46 metroNIDAZOLE 500 mg PO once ordered. ar2 03/21 11:37 T-Sheet-- Draft Copy was scanned into [employer] and attached to record. gb 11:37 Radiology Report was scanned into [employer] and attached to record. gb Administered Medications: 03/20 15:15 Drug: Diatrizoate Meglumine & Sodium 10 ml [diatrizoate meglumine and diat.sodium 66 jmk %-10 % oral solution (10 mL)] Route: PO; 15:27 Drug: NS 0.9% 1000 ml [sodium chloride 0.9 % intravenous solution] Route: IV; Rate: kc3 bolus; Site: right antecubital; 15:27 Drug: Metoclopramide 20 mg [metoclopramide 5 mg/mL injection solution] Route: IV; Rate: kc3 80 mg/hr; Infused Over: 15 mins; Site: right antecubital; 15:56 Follow up: IV Status: Completed infusion kc3 15:27 Drug: diphenhydrAMINE 50 mg [diphenhydramine 50 mg/mL injection solution (1 mL)] Route: kc3 IVP; Site: right antecubital; 15:57 Follow up: Response: Pain is decreased kc3 18:17 Drug: metroNIDAZOLE 500 mg [metronidazole 250 mg tablet (2 tabs)] Route: PO; kc3 18:18 Drug: Ciprofloxacin 500 mg [ciprofloxacin 500 mg tablet (1 tabs)] Route: PO; kc3 Signatures: Dispatcher [employer] Anupam Echevarria,RN RN Onelia Moore, Reg Reg Rosanna Yanez RN RN ck1 Ruddy Sheth Aaron, PA-C PA-Basilio ar2 Jayden Garcia PA PA btw Crane, Kelsi, RN RN kc3 The chart was reviewed and I authenticate all verbal orders and agree with the evaluation and treatment provided.Attachments: 16:49 [facility] Payment Agreement zo 03/21 11:37 T-Sheet-- Draft Copy gb Chart Complete [facility]
--- NOTE | 2016-03-22 19:50 | EDDOCDS ---
Nurse's Notes [facility] Name: Traci Gonzalez Age: 45 yrs Sex: Female : 1970 Arrival Date: 03/20/2016 Time: 13:59 Bed I4 / M4 Private MD: Garret Jones R. Diagnosis: Diverticulitis of large intestine without perforation or abscess without bleeding Presentation: 03/20 14:03 Presenting complaint: Patient states: Lower abdominal pain since Friday. Sent from [address] Risk factors: the patient reports no vaginal bleeding. Adult Sepsis Screening: The patient does not have new or worsening altered mentation. Patient's respiratory rate is less than 22. Systolic blood pressure is greater than 100. Patient has a qSOFA score of 0- Negative Sepsis Screen. Suicide/Homicide risk assessment- the patient denies having any suicidal and/or homicidal ideations and does not present with any other emotional, behavioral or mental health complaints. Status: Patient is not a staff services manager or dependent. Transition of care: patient was not received from another setting of care. 14:03 Acuity: ABBEY Level 3 [facility] 14:03 Method Of Arrival: Walkin/Carried/Asstd [facility] Triage Assessment: 14:05 General: Appears in no apparent distress, comfortable, Behavior is appropriate for age, ck1 cooperative. Pain: Location: right lower quadrant and left lower quadrant Pain currently is 6 out of 10 on a pain scale. HIV screening NA for this visit Offered previously. Neurological: No deficits noted. Respiratory: Respiratory effort is unlabored, Respiratory pattern is regular, symmetrical. GI: Denies constipation, diarrhea, nausea, vomiting. : Denies burning with urination, urinary frequency, vaginal bleeding. Derm: Skin is pink, warm & dry. 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 atorvastatin 40 mg oral tab 1 tab once daily - PMHx: Hypercholesterolemia; - PSHx: Appendectomy; Tubal ligation; - Social history: Smoking status: Patient states was never smoker of tobacco. No barriers to communication noted, The patient speaks fluent Grenadian, Speaks appropriately for age. - Family history: Not pertinent. - : The pt / caregiver states he / she is not on anticoagulants. Home medication list is obtained from the patient. - Exposure Risk Screening:: None identified. Screenin:28 Screening information is obtained from the patient. Fall risk: No risks identified. kc3 Assistance ADL's: requires no assistance with activities of daily living. Abuse/DV Screen: The patient / caregiver reports he/she is: not in a situation that causes fear, pain or injury. Nutritional screening: No deficits noted. Advance Directives: Currently, there is no health care proxy. home support is adequate. Assessment: 15:27 General: Appears in no apparent distress, comfortable, Behavior is appropriate for age, kc3 cooperative. Pain: Location: abdomen Pain currently is 7 out of 10 on a pain scale. Neurological: Level of Consciousness is awake, alert, obeys commands, Oriented to person, place, time. Respiratory: Airway is patent Respiratory effort is even, unlabored. GI: Abdomen is flat, Bowel sounds present X 4 quads. Abd is soft Abd is tender to palpation. Derm: Skin is pink, warm & dry. 16:45 General: Appears in no apparent distress, comfortable, Behavior is appropriate for age, kc3 cooperative. Pain: Location: abdomen. Neurological: Level of Consciousness is awake, alert, obeys commands, Oriented to person, place, time. Respiratory: Respiratory effort is even, unlabored. Derm: Skin is pink, warm & dry. 17:30 Reassessment: Patient appears in no apparent distress at this time. Patient states kc3 feeling better. 18:19 General: Appears in no apparent distress, comfortable, Behavior is appropriate for age, kc3 cooperative. Neurological: Level of Consciousness is awake, alert, obeys commands. Respiratory: Respiratory effort is even, unlabored. Derm: Skin is pink, warm & dry. Vital Signs: 14:01 BP 145 / 85; Pulse 80; Resp 18 S; Temp 98.7(O); Pulse Ox 98% on R/A; Weight 58.06 kg gr2 (R); Height 5 ft. 1 in. (154.94 cm) (R); Pain 6/10; 18:07 BP 141 / 95; Pulse 70; Resp 20; Temp 97.3(O); Pulse Ox 97% on R/A; Pain 4/10; jml1 14:01 Body Mass Index 24.19 (58.06 kg, 154.94 cm) gr2 Vitals: 14:01 Log In Time: March 20, 2016 at 14:01. gr2 ED Course: 14:00 Patient visited by Cl Noonan. gr2 14:00 Patient moved to Waiting gr2 14:01 Garret Jones is Private Physician. gr2 14:02 Patient visited by Cl Noonan. gr2 14:02 Patient moved to Pre RCE gr2 14:04 Triage Initiated ck1 14:36 Patient moved to Triage 2 jf3 14:47 Jayden Garcia PA is PHCP. btw 14:47 Brendon Rodriguez MD is Attending Physician. btw 14:47 Patient visited by Jayden Garcia PA. btw 14:54 Patient moved to I4 / M4 nb2 15:26 Amylase Sent. kc3 15:26 Basic Metabolic Profile Sent. kc3 15:26 CBC with Diff Sent. kc3 15:26 Lipase Sent. kc3 15:26 Liver Profile Sent. kc3 15:26 Urinalysis Sent. kc3 15:26 Urine Culture Sent. kc3 15:28 Patient visited by Beth Jacome RN. kc3 15:28 The patient / caregiver is instructed regarding the plan of care and ED course. kc3 15:28 Inserted saline lock: 20 gauge in right antecubital area and blood collected. The kc3 patient tolerated the procedure well. Labs drawn. (by ED staff). Sent per order to lab. 16:05 PHCP role handed off by Jayden Garcia PA ar2 16:05 Alphonse Perla PA-C is PHCP. ar2 16:06 Patient visited by Beth Jacome RN. kc3 16:47 Patient name changed from Culleen\S\\S\Mandigo\S\ to Culleen\S\ \S\Mandigo. EDMS 16:49 [facility] [place] Payment Agreement was scanned into Payment plugin and attached to record. zo 17:12 Patient visited by Melvin Aguilar. jml1 17:53 Arturo Wayne DO is Referral Physician. ar2 18:07 Patient visited by Melvin Aguilar. jml1 18:18 CT ABD & PELVIS: IV and Oral Contrast Returned. EDMS 18:19 Discontinued IV lock intact, bleeding controlled, pressure dressing applied, No kc3 redness/swelling at site. No procedures done that require assistance. 03/21 11:37 T-Sheet-- Draft Copy was scanned into Payment plugin and attached to record. 11:37 Radiology Report was scanned into Payment plugin and attached to record. gb Administered Medications: 03/20 15:15 Drug: Diatrizoate Meglumine & Sodium 10 ml [diatrizoate meglumine and diat.sodium 66 jmk %-10 % oral solution (10 mL)] Route: PO; 15:27 Drug: NS 0.9% 1000 ml [sodium chloride 0.9 % intravenous solution] Route: IV; Rate: kc3 bolus; Site: right antecubital; 15:27 Drug: Metoclopramide 20 mg [metoclopramide 5 mg/mL injection solution] Route: IV; Rate: kc3 80 mg/hr; Infused Over: 15 mins; Site: right antecubital; 15:56 Follow up: IV Status: Completed infusion kc3 15:27 Drug: diphenhydrAMINE 50 mg [diphenhydramine 50 mg/mL injection solution (1 mL)] Route: kc3 IVP; Site: right antecubital; 15:57 Follow up: Response: Pain is decreased kc3 18:17 Drug: metroNIDAZOLE 500 mg [metronidazole 250 mg tablet (2 tabs)] Route: PO; kc3 18:18 Drug: Ciprofloxacin 500 mg [ciprofloxacin 500 mg tablet (1 tabs)] Route: PO; kc3 Order Results: Lab Order: Amylase; SPEC'M 03/20/16 15:18 Test: AMYLASE; Value: 61; Range: 25-115; Units: U/L; Status: F Lab Order: Basic Metabolic Profile; SPEC'M 03/20/16 15:18 Test: GLUCOSE, FASTING; Value: 99; Range: 70-105; Units: MG/DL; Status: F Test: BLOOD UREA NITROGEN; Value: 6; Range: 7-18; Abnormal: Below low normal; Units: MG/DL; Status: F Test: CREATININE FOR GFR; Value: 0.66; Range: 0.55-1.02; Units: MG/DL; Status: F Test: GLOMERULAR FILTRATION RATE; Value: > 60.0; Range: >58; Status: F Test: SODIUM LEVEL; Value: 141; Range: 136-145; Units: MEQ/L; Status: F Test: POTASSIUM SERUM; Value: 3.3; Range: 3.5-5.1; Abnormal: Below low normal; Units: MEQ/L; Status: F Test: CHLORIDE LEVEL; Value: 108; Range: 98-107; Abnormal: Above high normal; Units: MEQ/L; Status: F Test: CARBON DIOXIDE LEVEL; Value: 27; Range: 21-32; Units: MEQ/L; Status: F Test: ANION GAP; Value: 6; Range: 8-16; Abnormal: Below low normal; Units: MEQ/L; Status: F Test: CALCIUM LEVEL; Value: 8.6; Range: 8.5-10.1; Units: MG/DL; Status: F Test Note: ; Units are mL/min/1.73 m2 Chronic Kidney Disease Staging per NKF: Stage I & II GFR >=60 Normal to Mildly Decreased Stage III GFR 30-59 Moderately Decreased Stage IV GFR 15-29 Severely Decreased Stage V GFR <15 Very Little GFR Left ESRD GFR <15 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 Lab Order: CBC with Diff; SPEC'M 03/20/16 15:18 Test: WHITE BLOOD COUNT; Value: 9.2; Range: 4.0-10.0; Units: K/mm3; Status: F Test: RED BLOOD COUNT; Value: 4.11; Range: 4.00-5.40; Units: M/mm3; Status: F Test: HEMOGLOBIN; Value: 12.7; Range: 12.0-16.0; Units: g/dl; Status: F Test: HEMATOCRIT; Value: 37.7; Range: 36.0-47.0; Units: %; Status: F Test: MEAN CORPUSCULAR VOLUME; Value: 91.8; Range: 80.0-96.0; Units: fl; Status: F Test: MEAN CORPUSCULAR HEMOGLOBIN; Value: 30.9; Range: 27.0-33.0; Units: pg; Status: F Test: MEAN CORPUSCULAR HGB CONC; Value: 33.7; Range: 32.0-36.5; Units: g/dl; Status: F Test: RED CELL DISTRIBUTION WIDTH; Value: 12.3; Range: 11.5-14.5; Units: %; Status: F Test: PLATELET COUNT, AUTOMATED; Value: 223; Range: 150-450; Units: k/mm3; Status: F Test: NEUTROPHILS %; Value: 74.7; Range: 36.0-66.0; Abnormal: Above high normal; Units: %; Status: F Test: LYMPH %; Value: 17.7; Range: 24.0-44.0; Abnormal: Below low normal; Units: %; Status: F Test: MONO %; Value: 4.6; Range: 0.0-5.0; Units: %; Status: F Test: EOS %; Value: 0.9; Range: 0.0-3.0; Units: %; Status: F Test: BASO %; Value: 0.3; Range: 0.0-1.0; Units: %; Status: F Test: LARGE UNSTAINED CELL %; Value: 1.7; Range: 0.0-4.0; Units: %; Status: F Test: NEUTROPHILS #; Value: 6.9; Range: 1.8-7.7; Units: K/mm3; Status: F Test: LYMPH #; Value: 1.6; Range: 1.5-4.5; Units: K/mm3; Status: F Test: MONO #; Value: 0.4; Range: 0.0-0.8; Units: K/mm3; Status: F Test: EOS #; Value: 0.1; Range: 0.0-0.50; Units: K/mm3; Status: F Test: BASO #; Value: 0.0; Range: 0.0-0.2; Units: K/mm3; Status: F Test: LARGE UNSTAINED CELL #; Value: 0.2; Range: 0.0-0.4; Units: K/mm3; Status: F Lab Order: Lipase; SPEC'M 03/20/16 15:18 Test: LIPASE; Value: 207; Range: 73-393; Units: U/L; Status: F Lab Order: Liver Profile; SPEC'M 03/20/16 15:18 Test: AST/SGOT; Value: 9; Range: 15-37; Abnormal: Below low normal; Units: U/L; Status: F Test: ALT/SGPT; Value: 13; Range: 12-78; Units: U/L; Status: F Test: ALKALINE PHOSPHATASE; Value: 71; Range: 45-117; Units: U/L; Status: F Test: BILIRUBIN,TOTAL; Value: 0.3; Range: 0.2-1.0; Units: MG/DL; Status: F Test: BILIRUBIN,DIRECT; Value: < 0.1; Range: 0.0-0.2; Units: MG/DL; Status: F Test: TOTAL PROTEIN; Value: 7.2; Range: 6.4-8.2; Units: GM/DL; Status: F Test: ALBUMIN; Value: 3.5; Range: 3.2-5.2; Units: GM/DL; Status: F Test: ALBUMIN/GLOBULIN RATIO; Value: 0.95; Range: 1.00-1.93; Abnormal: Below low normal; Status: F Lab Order: Urinalysis; SPEC'M 03/20/16 15:16 Test: APPEARANCE, URINE; Value: CLEAR; Range: CLEAR; Status: F Test: COLOR, URINE; Value: STRAW; Range: YELLOW; Status: F Test: PH,URINE; Value: 7.0; Range: 5.0-9.0; Units: UNITS; Status: F Test: SPECIFIC GRAVITY URINE AUTO; Value: 1.004; Range: 1.002-1.035; Status: F Test: PROTEIN, URINE AUTO; Value: NEGATIVE; Range: NEGATIVE; Units: mg/dL; Status: F Test: GLUCOSE, URINE (UA) AUTO; Value: 1+; Range: NEGATIVE; Abnormal: Above high normal; Units: mg/dL; Status: F Test: KETONE, URINE AUTO; Value: NEGATIVE; Range: NEGATIVE; Units: mg/dL; Status: F Test: UROBILINOGEN, URINE AUTO; Value: 0.2; Range: 0.0-2.0; Units: mg/dL; Status: F Test: BILIRUBIN, URINE AUTO; Value: NEGATIVE; Range: NEGATIVE; Status: F Test: NITRITE, URINE AUTO; Value: NEGATIVE; Range: NEGATIVE; Status: F Test: LEUKOCYTE ESTERASE, URINE AUTO; Value: TRACE; Range: NEGATIVE; Abnormal: Above high normal; Status: F Test: BLOOD, URINE BLOOD; Value: 1+; Range: NEGATIVE; Abnormal: Above high normal; Status: F Test: WBC, URINE AUTO; Value: 2; Range: 0-3; Units: /HPF; Status: F Test: RBC, URINE AUTO; Value: 1; Range: 0-3; Units: /HPF; Status: F Test: BACTERIA, URINE AUTO; Value: 1+; Range: NEGATIVE; Abnormal: Above high normal; Status: F Test: SQUAMOUS EPITHELIAL CELL UR AU; Value: 3; Range: 0-6; Units: /HPF; Status: F Test: MUCUS, URINE; Value: SMALL; Range: NEGATIVE; Status: F Test: HYALINE CAST, URINE AUTO; Value: 0; Range: 0-1; Units: /LPF; Status: F Lab Order: Urine Culture; SPEC'M 03/20/16 15:16 Test: URINE CULTURE; Value: <EXTERNAL COMMENT eCWMed> FULL REPORT IN LAB NOTES (eCW and Medent).; Status: F Test: URINE CULTURE; Value: URINE CULTURE RESULT NO GROWTH CLINICAL SIGNIFICANCE 1 ORGANISM; Status: F Radiology Order: CT ABD & PELVIS: IV and Oral Contrast Test: CT ABD & PELVIS: IV and Oral Contrast REASON FOR EXAMINATION: Abdomen Pain; CT study of the abdomen pelvis with IV and oral contrast:; ; History: Abdominal pain.; ; Comparison study: 11/29/2011.; ; CT contrast dose: 100 mL of Isovue-370 is administered intravenously.; ; CT findings: Digital magnetizer views of the abdomen demonstrate tubal ligation bands; bilaterally in the pelvis. Bowel gas pattern is unremarkable. The lung bases; are clear. The liver and the spleen are normal in size homogeneous in texture.; Gallbladder is unremarkable. No pancreatic abnormality is observed. No adrenal; lesion is seen. The kidneys enhance symmetrically are morphologically intact.; No retroperitoneal mass or adenopathy is seen. Normal caliber aorta is seen.; Small and large bowel loops are normal in the upper abdomen.; ; Pelvic CT images demonstrate a loop of left colon at the descending colon splenic; flexure junction involving mural thickening and pericolonic fat stranding. There; are two or three diverticula seen in this segment and the findings are compatible; with diverticulitis. There is no visible abscess. There is one droplet of; contained air in the pericolonic mesenteric fat.; ; There is a cyst in the left ovary measuring 3.4 cm in greatest diameter. A; smaller cystic area seen in the right ovary. A retroverted retroflexed uterus is; seen. Urinary bladder is unremarkable. A small quantity of cul-de-sac fluid is; seen.; ; No abdominal wall defect is seen. Bone window settings show no bony destructive; lesion.; ; Impression:; ; CT findings compatible with acute diverticulitis of the left colon at the; descending sigmoid junction without evidence of abscess or free air. Moderate; mural thickening and pericolonic edema are seen.; ; ; Signed by; Dewayne Lazo MD 03/21/2016 09:54 A; Outcome: 17:53 Discharge ordered by Provider. ar2 18:20 Discharge Assessment: Patient awake, alert and oriented x 3. No cognitive and/or kc3 functional deficits noted. Patient verbalized understanding of disposition instructions. patient administered narcotics - no. The following High Risk Discharge criteria are identified: None. Discharged to home ambulatory. Condition: stable. Discharge instructions given to patient, Instructed on discharge instructions, follow up and referral plans. medication usage, Demonstrated understanding of instructions, medications, Pt was receptive of discharge instructions/ teaching. Prescriptions given X 3. CT Study completed. Property :Personal belongings accompany Pt. 18:24 Patient left the ED. kc3 18:49 Patient left the ED. kc3 Signatures: Dispatcher [employer] EDMS Anupam Vines,RN RN jmk Onelia Bills, Reg Reg Rosanna Yanez,RN RN ck1 Ruddy Sheth Aaron, PA-C PA-C ar2 Jayden Garcia PA PA btw Traver, Jamie jml1 Cl Noonan gr2 Beth Jacome RN RN kc3 Tyrone Vega,EUGENIO RN 3 Margie Thomas2 Chart Complete MTDD
--- NOTE | 2016-03-22 19:50 | EDDOCDS ---
Physician Documentation [facility] Name: Traci Gonzalez Age: 45 yrs Sex: Female : 1970 Arrival Date: 03/20/2016 Time: 13:59 Bed I4 / M4 Private MD: Garret Jones R. Disposition: 03/20/16 17:53 Discharged to Home/Self Care. Impression: Diverticulitis of large intestine without perforation or abscess without bleeding. - Condition is Stable. - Discharge Instructions: Clear Liquid Diet, Diverticulitis. - Prescriptions for Cipro 500 mg Oral Tablet - take 1 tablet by ORAL route every 12 hours for 10 days; 19 tablet. Flagyl 500 mg Oral Tablet - take 1 tablet by ORAL route every 8 hours for 10 days; 29 tablet. Ultram 50 mg Oral Tablet - take 1 tablet by ORAL route every 6 hours As needed MDD: 4 tabs; 20 tablet. - Medication Reconciliation, Local Pharmacy Hours, Work Release Form - 3 day form. - Follow up: Arturo Wayne DO; When: 1 week; Reason: Recheck today's complaints. Follow up: Emergency Department; When: As needed; Reason: Fever > 102F, Worsening of conditions. - Problem is new. - Symptoms have improved. - Notes: may use tylenol or ibuprofen as needed for pain Historical: - Allergies: PENICILLINS; - Home Meds: 1. atorvastatin 40 mg oral tab 1 tab once daily - PMHx: Hypercholesterolemia; - PSHx: Appendectomy; Tubal ligation; - Social history: Smoking status: Patient states was never smoker of tobacco. No barriers to communication noted, The patient speaks fluent Swiss, Speaks appropriately for age. - Family history: Not pertinent. - : The pt / caregiver states he / she is not on anticoagulants. Home medication list is obtained from the patient. - Exposure Risk Screening:: None identified. 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 1 in. (154.94 cm) (R); Pain 6/10; 18:07 BP 141 / 95; Pulse 70; Resp 20; Temp 97.3(O); Pulse Ox 97% on R/A; Pain 4/10; jml1 14:01 Body Mass Index 24.19 (58.06 kg, 154.94 cm) gr2 MDM: 14:53 NS 0.9% 1000 ml IV at bolus once ordered. btw 14:53 IV Saline Lock ordered. btw 14:53 Undress patient appropriately for examination ordered. btw 14:53 Metoclopramide 20 mg IV at 80 mg/hr once over 15 mins ordered. btw 14:53 diphenhydrAMINE 50 mg IVP once ordered. btw 14:54 CT ABD & PELVIS: IV and Oral Contrast Ordered. EDMS 14:54 NOTHING BY MOUTH+DIET ordered. EDMS 14:54 Amylase Ordered. EDMS 14:54 Basic Metabolic Profile Ordered. EDMS 14:54 CBC with Diff Ordered. EDMS 14:54 Lipase Ordered. EDMS 14:55 Liver Profile Ordered. EDMS 14:55 Urinalysis Ordered. EDMS 14:55 Urine Culture Ordered. EDMS 15:28 Diatrizoate Meglumine & Sodium Liquid 10 ml PO once; mix in 290cc of water ordered. jmk 15:59 Basic Metabolic Profile Reviewed. btw 15:59 CBC with Diff Reviewed. btw 15:59 Liver Profile Reviewed. btw 15:59 Urinalysis Reviewed. btw 15:59 Amylase Reviewed. btw 15:59 Lipase Reviewed. btw 16:43 Financial registration complete. zo 16:49 [facility] Payment Agreement was scanned into [employer] and attached to record. zo 17:46 Ciprofloxacin 500 mg PO once ordered. ar2 17:46 metroNIDAZOLE 500 mg PO once ordered. ar2 03/21 11:37 T-Sheet-- Draft Copy was scanned into [employer] and attached to record. gb 11:37 Radiology Report was scanned into [employer] and attached to record. gb Administered Medications: 03/20 15:15 Drug: Diatrizoate Meglumine & Sodium 10 ml [diatrizoate meglumine and diat.sodium 66 jmk %-10 % oral solution (10 mL)] Route: PO; 15:27 Drug: NS 0.9% 1000 ml [sodium chloride 0.9 % intravenous solution] Route: IV; Rate: kc3 bolus; Site: right antecubital; 15:27 Drug: Metoclopramide 20 mg [metoclopramide 5 mg/mL injection solution] Route: IV; Rate: kc3 80 mg/hr; Infused Over: 15 mins; Site: right antecubital; 15:56 Follow up: IV Status: Completed infusion kc3 15:27 Drug: diphenhydrAMINE 50 mg [diphenhydramine 50 mg/mL injection solution (1 mL)] Route: kc3 IVP; Site: right antecubital; 15:57 Follow up: Response: Pain is decreased kc3 18:17 Drug: metroNIDAZOLE 500 mg [metronidazole 250 mg tablet (2 tabs)] Route: PO; kc3 18:18 Drug: Ciprofloxacin 500 mg [ciprofloxacin 500 mg tablet (1 tabs)] Route: PO; kc3 Signatures: Dispatcher [employer] Anupam Echevarria,RN RN Onelia Moore, Reg Reg Rsoanna Yanez RN RN ck1 Ruddy Sheth Aaron, PA-C PA-Basilio ar2 Jayden Garcia PA PA btw Crane, Kelsi, RN RN kc3 The chart was reviewed and I authenticate all verbal orders and agree with the evaluation and treatment provided.Attachments: 16:49 [facility] Payment Agreement zo 03/21 11:37 T-Sheet-- Draft Copy gb Chart Complete [facility]
== END 2016-03-20 18:49 | disposition home or self-care (01) ==
LOC: M ED 13:59
DX: K57.32 Diverticulitis of large intestine without perforation or abscess without bleeding (principal); E78.00 Pure hypercholesterolemia, unspecified; Z79.899 Other long term (current) drug therapy; Z88.0 Allergy status to penicillin

== ENCOUNTER → 2016-05-22 | Outpatient (CLI) | payer OTHER ==
[~2016-05-22] VITALS: Ht 154.9 cm; Wt 56.7 kg
[~2016-05-22] MED LIST: LIDOCAINE 2% INJ 100 MG/5 ML SDV (FOR ANES.) As Ordered ONE; NS 1,000 ML IV SCH; PROPOFOL 200 MG/20 ML VIAL As Ordered ONE
--- NOTE | 2016-05-22 08:26 | ROOR ---
Patient Name: Traci Gonzalez Procedure Date: 05/22/2016 8:00 AM Date of : 1970 Age: 45 Room: [facility] Gender: Female Note Status: Finalized Procedure: Colonoscopy Indications: Suspected diverticula Providers: DO Uyen Lopez MD: UNIQUE Macdonald Requesting Provider: Medicines: Propofol per Anesthesia Complications: No immediate complications. Procedure: Pre-Anesthesia Assessment: - Prior to the procedure, a History and Physical was performed, and patient medications and allergies were reviewed. The patient is competent. The risks and benefits of the procedure and the sedation options and risks were discussed with the patient. All questions were answered and informed consent was obtained. Patient identification and proposed procedure were verified by the physician, the nurse, the anesthesiologist and the blood or blood bank technician in the endoscopy suite. Mental Status Examination: alert and oriented. Airway Examination: normal oropharyngeal airway and neck mobility. Respiratory Examination: clear to auscultation. CV Examination: normal. Prophylactic Antibiotics: The patient does not require prophylactic antibiotics. Prior Anticoagulants: The patient has taken no previous anticoagulant or antiplatelet agents. ASA Grade Assessment: II - A patient with mild systemic disease. After reviewing the risks and benefits, the patient was deemed in satisfactory condition to undergo the procedure. The anesthesia plan was to use monitored anesthesia care (MAC). Immediately prior to administration of medications, the patient was re-assessed for adequacy to receive sedatives. The heart rate, respiratory rate, oxygen saturations, blood pressure, adequacy of pulmonary ventilation, and response to care were monitored throughout the procedure. The physical status of the patient was re-assessed after the procedure. The Colonoscope was introduced through the anus and advanced to the cecum, identified by the appendiceal orifice, ileocecal valve and palpation. The colonoscopy was performed without difficulty. The patient tolerated the procedure well. Findings: A single small-mouthed diverticulum was found in the sigmoid colon. The exam was otherwise without abnormality on direct and retroflexion views. Impression: - Diverticulosis in the sigmoid colon. - The examination was otherwise normal on direct and retroflexion views. - No specimens collected. Recommendation: - Patient has a contact number available for emergencies. The signs and symptoms of potential delayed complications were discussed with the patient. Return to normal activities tomorrow. Written discharge instructions were provided to the patient. - Repeat colonoscopy in 5-10 years for screening purposes. - Return to my office PRN. Arturo Wayne DO 05/22/2016 8:25:31 AM This report has been signed electronically. Number of Addenda: 0 Note Initiated On: 05/22/2016 8:00 AM Estimated Blood Loss: Estimated blood loss: none.
[2016-05-22 08:50] VITALS: BP 137/86
== END | disposition home or self-care (01) ==
LOC: M OPP 06:42
PROVIDERS: ATTEND Surgery
DX: K57.30 Diverticulosis of large intestine without perforation or abscess without bleeding (principal); E78.00 Pure hypercholesterolemia, unspecified; Z79.899 Other long term (current) drug therapy; Z88.0 Allergy status to penicillin

== ENCOUNTER → 2016-08-28 | Outpatient (REF) | payer OTHER ==
[2016-08-28 11:35] LABS: ALBUMIN 4.3 GM/DL (3.2-5.2); ALKALINE PHOSPHATASE 67 U/L (45-117); ALT/SGPT 20 U/L (12-78); ANION GAP 5 MEQ/L (8-16); AST/SGOT 18 U/L (15-37); BILIRUBIN,TOTAL 0.7 MG/DL (0.2-1.0); BLOOD UREA NITROGEN 9 MG/DL (7-18); CALCIUM LEVEL 9.3 MG/DL (8.5-10.1); CARBON DIOXIDE LEVEL 29 MEQ/L (21-32); CHLORIDE LEVEL 104 MEQ/L (98-107); CHOLESTEROL LEVEL 200 MG/DL (<200); CREATININE FOR GFR 0.64 MG/DL (0.55-1.02); GLOMERULAR FILTRATION RATE > 60.0 (>58); GLUCOSE, FASTING 78 MG/DL (70-105); SODIUM LEVEL 138 MEQ/L (136-145); TOTAL PROTEIN 7.6 GM/DL (6.4-8.2); TRIGLYCERIDES LEVEL 79 MG/DL (<150)
== END ==
LOC: M SFHCLERA 09:49
PROVIDERS: ATTEND Physician Assistant
DX: E78.2 Mixed hyperlipidemia (principal)

== ENCOUNTER → 2017-01-05 | Outpatient (REF) | payer OTHER | LOC: M SFHCLERA 12:22 | PROVIDERS: ATTEND Nurse Practitioner Family | DX: R30.0 Dysuria (principal) ==

== ENCOUNTER → 2017-06-03 | Outpatient (REF) | payer OTHER ==
[2017-06-03 17:22] LABS: HEMATOCRIT 39.8 % (36.0-47.0); HEMOGLOBIN 13.5 g/dl (12.0-15.5); MEAN CORPUSCULAR HEMOGLOBIN 31.2 pg (27.0-33.0); MEAN CORPUSCULAR HGB CONC 33.9 g/dl (32.0-36.5); MEAN CORPUSCULAR VOLUME 91.9 fl (80.0-96.0); PLATELET COUNT, AUTOMATED 245 10^3/uL (150-450); RED BLOOD COUNT 4.33 10^6/uL (4.00-5.40); RED CELL DISTRIBUTION WIDTH 12.2 % (11.5-14.5); WHITE BLOOD COUNT 5.6 10^3/uL (4.0-10.0)
[2017-06-03 17:27] LABS: ALBUMIN 3.9 GM/DL (3.2-5.2); ALBUMIN/GLOBULIN RATIO 1.08 (1.00-1.93); ALKALINE PHOSPHATASE 75 U/L (45-117); ALT/SGPT 21 U/L (12-78); ANION GAP 4 MEQ/L (8-16); AST/SGOT 15 U/L (7-37); BILIRUBIN,TOTAL 0.3 MG/DL (0.2-1.0); BLOOD UREA NITROGEN 10 MG/DL (7-18); CALCIUM LEVEL 8.7 MG/DL (8.5-10.1); CARBON DIOXIDE LEVEL 29 MEQ/L (21-32); CHLORIDE LEVEL 109 MEQ/L (98-107); CREATININE FOR GFR 0.65 MG/DL (0.55-1.30); GLOMERULAR FILTRATION RATE > 60.0 (>58); GLUCOSE, FASTING 90 MG/DL (70-100); POTASSIUM SERUM 4.1 MEQ/L (3.5-5.1); SODIUM LEVEL 142 MEQ/L (136-145); TOTAL PROTEIN 7.5 GM/DL (6.4-8.2)
== END ==
LOC: M SFHCLERA 11:40
DX: I10 Essential (primary) hypertension (principal); R53.83 Other fatigue

== ENCOUNTER → 2017-06-03 | Outpatient (CLI) | payer OTHER | LOC: M LRY 11:45 | DX: R07.89 Other chest pain (principal) | CPT/HCPCS: 71046 ==

== ENCOUNTER → 2017-12-24 | Outpatient (CLI) | payer OTHER | LOC: M WHC 15:07 | DX: Z12.31 Encounter for screening mammogram for malignant neoplasm of breast (principal); Z92.0 Personal history of contraception; Z80.3 Family history of malignant neoplasm of breast | CPT/HCPCS: 77067 ==

== ENCOUNTER → 2017-12-24 | Outpatient (REF) | payer OTHER | LOC: M SFHCWAGY 15:09 | DX: Z12.4 Encounter for screening for malignant neoplasm of cervix (principal); R87.612 Low grade squamous intraepithelial lesion on cytologic smear of cervix (LGSIL) ==

== ENCOUNTER → 2017-12-29 | Outpatient (REF) | payer OTHER ==
[2017-12-29 17:49] LABS: HEMATOCRIT 41.7 % (36.0-47.0); HEMOGLOBIN 13.7 g/dl (12.0-15.5); MEAN CORPUSCULAR HEMOGLOBIN 31.1 pg (27.0-33.0); MEAN CORPUSCULAR HGB CONC 32.9 g/dl (32.0-36.5); MEAN CORPUSCULAR VOLUME 94.8 fl (80.0-96.0); PLATELET COUNT, AUTOMATED 255 10^3/uL (150-450); RED CELL DISTRIBUTION WIDTH 12.5 % (11.5-14.5); WHITE BLOOD COUNT 7.5 10^3/uL (4.0-10.0)
[2017-12-29 18:01] LABS: ALBUMIN 3.9 GM/DL (3.2-5.2); ALBUMIN/GLOBULIN RATIO 1.22 (1.00-1.93); ALKALINE PHOSPHATASE 67 U/L (45-117); ALT/SGPT 17 U/L (12-78); ANION GAP 7 MEQ/L (8-16); AST/SGOT 14 U/L (7-37); BILIRUBIN,TOTAL 0.3 MG/DL (0.2-1.0); BLOOD UREA NITROGEN 9 MG/DL (7-18); CARBON DIOXIDE LEVEL 28 MEQ/L (21-32); CHLORIDE LEVEL 105 MEQ/L (98-107); CHOLESTEROL LEVEL 189 MG/DL (<200); CHOLESTEROL RISK RATIO 3.566 (<5); CREATININE FOR GFR 0.63 MG/DL (0.55-1.30); GLOMERULAR FILTRATION RATE > 60.0 (>58); GLUCOSE, FASTING 82 MG/DL (70-100); HDL CHOLESTEROL 53 MG/DL (>40); LDL CHOLESTEROL 116 MG/DL (<100); NON-HDL-C 136 MG/DL; POTASSIUM SERUM 4.2 MEQ/L (3.5-5.1); SODIUM LEVEL 140 MEQ/L (136-145); TOTAL PROTEIN 7.1 GM/DL (6.4-8.2); TRIGLYCERIDES LEVEL 100 MG/DL (<150)
== END ==
LOC: M SFHCLERA 13:02
DX: I10 Essential (primary) hypertension (principal); E78.2 Mixed hyperlipidemia

== ENCOUNTER → 2018-01-01 | Outpatient (CLI) | payer OTHER | LOC: M LRY 09:34 | DX: M76.51 Patellar tendinitis, right knee (principal) | CPT/HCPCS: 73564 ==

== ENCOUNTER → 2018-01-26 | Outpatient (REF) | payer OTHER | LOC: M SFHCWAGY 13:30 | DX: N87.0 Mild cervical dysplasia (principal) | CPT/HCPCS: 88304 ==

== ENCOUNTER → 2018-12-25 | Outpatient (REF) | payer OTHER | LOC: M SFHCWAGY 08:11 | PROVIDERS: ATTEND Nurse Practitioner Women's Health | DX: Z12.4 Encounter for screening for malignant neoplasm of cervix (principal); Z87.42 Personal history of other diseases of the female genital tract | CPT/HCPCS: 87624; G0123 ==

== ENCOUNTER → 2018-12-25 | Outpatient (CLI) | payer OTHER ==
--- NOTE | 2018-12-25 10:47 | REPMRS ---
Patient History The patient states she had a clinical breast exam in 12/2018. Family history of breast cancer at age 72 in mother, breast cancer at age 89 in maternal grandmother. Took hormonal contraceptives for 25 years. Digital Woman Screen Mammo: December 25, 2018 - Exam #: [id number] Bilateral CC and MLO view(s) were taken. Technologist: Klarissa Vigil, Technologist Prior study comparison: December 24, 2017, bilateral digital woman screen mammo performed at [facility]. October 09, 2016, bilateral digital woman screen mammo, performed at [facility]. October 04, 2015, bilateral digital woman screen mammo, performed at [facility]. FINDINGS: There are scattered fibroglandular densities. There has been no change in the appearance of the mammogram from the prior studies. There is a mild amount of scattered fibroglandular density which is fairly symmetric. There is no interval development of dominant mass, architectural distortion, or grouped microcalcification suggestive of malignancy. 3-D tomosynthesis shows no additional findings. Assessment: BI-RADS/ACR category 1 mammogram. Negative Mammogram. Recommendation Breast MRI of both breasts in 6 months. Routine screening mammogram of both breasts in 1 year (for women over age 40). This patient's Lifetime Breast Cancer Risk is estimated at 29.0 %. Annual screening Breast MRI scanniing is recommended for patient's whose lifetime risk assessment is over 20%. This mammogram was interpreted with the aid of an FDA-approved computer-aided dectection system. Electronically Signed By: Joe Lazo MD 12/25/18 [id number]
== END ==
LOC: M WHC 08:17
PROVIDERS: ATTEND Nurse Practitioner Women's Health
DX: Z12.31 Encounter for screening mammogram for malignant neoplasm of breast (principal); Z80.3 Family history of malignant neoplasm of breast

== ENCOUNTER → 2019-07-15 | Outpatient (CLI) | payer OTHER ==
--- NOTE | 2019-07-15 18:21 | REPPI ---
Clinical: Plantar fasciitis. Technique: AP, lateral, bilateral oblique views of the left foot. Findings: Generalized age-related changes are appreciated primarily involving the first metatarsophalangeal joint with subchondral sclerosis and minimal joint space narrowing. No acute fracture or dislocation. Lateral view demonstrates small calcaneal heal spur. No plantar calcifications noted. Impression: Age-related changes. Small heel spur. Electronically Signed by José Miguel Lennon MD 07/15/2019 06:12 P
== END ==
LOC: M PLALAB 15:48
PROVIDERS: ATTEND Family Medicine
DX: M77.32 Calcaneal spur, left foot (principal); M72.2 Plantar fascial fibromatosis

== ENCOUNTER → 2019-08-12 | Outpatient (CLI) | payer OTHER ==
[~2019-08-12] MED LIST changes: -LIDOCAINE 2% INJ 100 MG/5 ML SDV (FOR ANES.) As Ordered ONE; -NS 1,000 ML IV SCH; +PROHANCE 279.3MG/ML 15ML VIAL As Ordered ONE; -PROPOFOL 200 MG/20 ML VIAL As Ordered ONE
--- NOTE | 2019-08-12 12:28 | REP ---
BILATERAL BREAST MRI WITH AND WITHOUT CONTRAST: HISTORY: Elevated lifetime risk of breast cancer 29.0%. Family history of breast cancer in mother at age 72 and maternal grandmother at age 89. Comparison mammogram 12/25/2018 and MRI 07/06/2018. TECHNIQUE: Multiple sequences obtained in the axial, coronal and sagittal planes prior to and following the intravenous administration of 13 mL ProHance. Images are evaluated on the [employer] software, including dynamic post-IV gadolinium, axial T1 fat sat images, subtraction images, color overlay images, CAD images and MIP reconstruction images. Mild diffuse fibroglandular tissue is again seen bilaterally. There is minimal background parenchymal enhancement. No significant cystic change is seen. No axillary adenopathy is seen. There is no suspicious enhancing mass or morphologic abnormality bilaterally. IMPRESSION: BIRADS category 1 negative breast MRI. No suspicious enhancing mass or morphologic abnormality Recommend annual screening breast MRI for patients with lifetime risk of breast cancer of 20% or greater, in addition to annual screening mammography, staggered every six months. Electronically Signed by Arturo Calhoun MD 08/12/2019 03:10 P
== END ==
LOC: M RAD 09:15
PROVIDERS: ATTEND Nurse Practitioner Women's Health
DX: Z12.39 Encounter for other screening for malignant neoplasm of breast (principal); Z15.01 Genetic susceptibility to malignant neoplasm of breast; Z80.3 Family history of malignant neoplasm of breast
CPT/HCPCS: A9576; C8908

== ENCOUNTER → 2019-12-25 | Outpatient (CLI) | payer OTHER ==
[2019-12-25 13:28] LABS: BLOOD UREA NITROGEN 12 MG/DL (7-18); CALCIUM LEVEL 9.1 MG/DL (8.5-10.1); CARBON DIOXIDE LEVEL 28 MEQ/L (21-32); CHLORIDE LEVEL 108 MEQ/L (98-107); CHOLESTEROL LEVEL 208 MG/DL (<200); CREATININE FOR GFR 0.72 MG/DL (0.55-1.30); GLOMERULAR FILTRATION RATE > 60.0 (>51); GLUCOSE, FASTING 95 MG/DL (70-100); HDL CHOLESTEROL 52 MG/DL (>40); LDL CHOLESTEROL 144 MG/DL (<100); NON-HDL-C 156 MG/DL; POTASSIUM SERUM 4.4 MEQ/L (3.5-5.1); SODIUM LEVEL 140 MEQ/L (136-145); TRIGLYCERIDES LEVEL 62 MG/DL (<150)
== END ==
LOC: M WUC 08:00
PROVIDERS: ATTEND Family Medicine
DX: I10 Essential (primary) hypertension (principal)

== ENCOUNTER → 2019-12-28 | Outpatient (CLI) | payer OTHER ==
--- NOTE | 2019-12-28 15:49 | REPMRS ---
Patient History The patient states she had a clinical breast exam in December 2019. Family history of breast cancer at age 72 in mother, breast cancer at age 89 in maternal grandmother. Took hormonal contraceptives for 25 years. Digital Woman Screen Mammo: December 28, 2019 - Exam #: [id number] Bilateral CC and MLO view(s) were taken. Technologist: Regina Knight Technologist Prior study comparison: December 25, 2018, bilateral digital woman screen mammo performed at [facility]. December 24, 2017, bilateral digital woman screen mammo performed at [facility]. FINDINGS: There are scattered fibroglandular densities. The Volpara volumetric breast density category is:B. There has been no change in the appearance of the mammogram from the prior studies. There is a mild amount of scattered fibroglandular density which is fairly symmetric. There is no interval development of dominant mass, architectural distortion, or grouped microcalcification suggestive of malignancy. 3-D tomosynthesis shows no additional findings. Assessment: BI-RADS/ACR category 1 mammogram. Negative Mammogram. Recommendation Breast MRI of both breasts in 6 months. Routine screening mammogram of both breasts in 1 year (for women over age 40). This patient's Lifetime Breast Cancer Risk is estimated at 28.6 %. Annual screening Breast MRI scanniing is recommended for patient's whose lifetime risk assessment is over 20%. This mammogram was interpreted with the aid of an FDA-approved computer-aided dectection system. Electronically Signed By: Joe Lazo MD 12/28/19 [id number]
== END ==
LOC: M WHC 14:31
PROVIDERS: ATTEND Nurse Practitioner Women's Health
DX: Z12.31 Encounter for screening mammogram for malignant neoplasm of breast (principal); Z80.3 Family history of malignant neoplasm of breast

== ENCOUNTER → 2020-05-23 | Outpatient (CLI) | payer OTHER ==
--- NOTE | 2020-05-23 11:23 | REP ---
INDICATION: PAIN. COMPARISON: None. TECHNIQUE: There are three views. FINDINGS: Mineralization is normal. The acromioclavicular and glenohumeral articulations are unremarkable. There are no calcifications or foreign bodies. There is no fracture or dislocation. IMPRESSION: Essentially negative right shoulder. <Electronically signed by Arturo Vieyra > 05/23/20 [id number]
== END ==
LOC: M WUC 10:20
PROVIDERS: ATTEND Family Medicine
DX: M25.511 Pain in right shoulder (principal)

== ENCOUNTER → 2020-09-12 | Outpatient (CLI) | payer OTHER ==
--- NOTE | 2020-09-12 17:17 | REP ---
INDICATION: FAM HX OF BREAST CA, DENSE BREASTS. COMPARISON: Comparison breast MRI study is from August 12, 2019. Comparison mammography December 28, 2019. TECHNIQUE: Three Carissa MRI imaging was performed with a dedicated breast coil. Axial, coronal, and sagittal T1 and T2 weighted scans were obtained with and without fat saturation in the usual fashion. The study includes dynamically acquired post gadolinium-enhanced imaging with image subtraction. Maximum intensity projection and multi planar reformation imaging is included as well. This study is interpreted with the aid of [employer], an FDA approved computer aided detection (CAD) software program, on a dedicated breast MRI workstation. The gadolinium enhancement dose is 14 mL of intravenous ProHance. FINDINGS: There is a minimal amount of fibroglandular tissue bilaterally corresponding with the mammographic pattern. There is minimal background parenchymal enhancement. There is no evidence of axillary lymphadenopathy or significant breast cystic change. High-resolution pre and post-contrast T1 and T2 weighted scans show no suspicious morphologic abnormality in either breast. Dynamically acquired sequential postcontrast images show no suspicious area of enhancement and washout kinetics in either breast to suggest malignancy. Subtraction images show no additional abnormality. IMPRESSION: BI-RADS category 1 negative bilateral breast MRI findings. <Electronically signed by Joe Lazo > 09/12/20 [id number]
== END ==
LOC: M RAD 12:45
PROVIDERS: ATTEND Nurse Practitioner Women's Health
DX: Z12.31 Encounter for screening mammogram for malignant neoplasm of breast (principal); Z80.3 Family history of malignant neoplasm of breast; R92.2 Inconclusive mammogram
CPT/HCPCS: A9576; C8908

== ENCOUNTER → 2021-03-21 | Outpatient (CLI) | payer OTHER | LOC: M WHC 14:58 | PROVIDERS: ATTEND Nurse Practitioner Women's Health | DX: Z12.31 Encounter for screening mammogram for malignant neoplasm of breast (principal); Z80.3 Family history of malignant neoplasm of breast ==

== ENCOUNTER → 2021-09-03 | Outpatient (CLI) | payer OTHER ==
[2021-09-03 16:45] LABS: ALBUMIN 3.9 GM/DL (3.2-5.2); ALT/SGPT 26 U/L (12-78); BILIRUBIN,TOTAL 0.2 MG/DL (0.2-1.0); BLOOD UREA NITROGEN 9 MG/DL (7-18); CARBON DIOXIDE LEVEL 25 MEQ/L (21-32); CHLORIDE LEVEL 110 MEQ/L (98-107); CHOLESTEROL LEVEL 232 MG/DL (<200); CREATININE FOR GFR 0.76 MG/DL (0.55-1.30); FREE T4 0.79 NG/DL (0.76-1.46); GLOMERULAR FILTRATION RATE > 60.0 (>51); GLUCOSE, FASTING 94 MG/DL (70-100); HDL CHOLESTEROL 50 MG/DL (>40); LDL CHOLESTEROL 162 MG/DL (<100); NON-HDL-C 182 MG/DL; POTASSIUM SERUM 4.4 MEQ/L (3.5-5.1); SODIUM LEVEL 143 MEQ/L (136-145); TOTAL PROTEIN 7.5 GM/DL (6.4-8.2); TRIGLYCERIDES LEVEL 101 MG/DL (<150)
== END ==
LOC: M WUC 13:13
PROVIDERS: ATTEND Student in an Organized Health Care Education/Training Program
DX: I10 Essential (primary) hypertension (principal); R79.89 Other specified abnormal findings of blood chemistry

== ENCOUNTER → 2022-04-09 | Outpatient (CLI) | payer OTHER | LOC: M WHC 13:41 | PROVIDERS: ATTEND Student in an Organized Health Care Education/Training Program | DX: Z12.31 Encounter for screening mammogram for malignant neoplasm of breast (principal) ==

== ENCOUNTER → 2022-05-21 | Outpatient (REF) | payer OTHER | LOC: M SFHCWAGY 13:10 | PROVIDERS: ATTEND Nurse Practitioner Family | DX: Z12.4 Encounter for screening for malignant neoplasm of cervix (principal) | CPT/HCPCS: 87624; G0123 ==

== ENCOUNTER 2022-09-27 10:14 | Day surgery (SDC) | payer OTHER ==
[~2022-09-27] VITALS: Ht 154.9 cm; Wt 74.9 kg
[~2022-09-27 10:14] MED LIST changes: +AMLO1TAB24 PO; +ATOR40TA75 PO; +LISI40TA4 PO; +MULT-90 PO; +NS 1,000 ML IV ONE; +OCUV1CAP4 PO; -PROHANCE 279.3MG/ML 15ML VIAL As Ordered ONE; +VITA100T59 PO
[2022-09-27] MEDS ORDERED: LIDOCAINE 2% 100MG/5ML SDV (FOR ANES.) As Ordered ONE (12:27)
[2022-09-27] MEDS ORDERED: propofoL 500 MG/50 ML VIAL As Ordered ONE (12:27)
[2022-09-27 12:47] VITALS: TEMP 97
[2022-09-27 12:59] VITALS: BP 130/78; O2SAT 97
== END 2022-09-27 13:08 | disposition home or self-care (01) ==
LOC: M OPP 10:14
PROVIDERS: ATTEND Surgery
DX: Z12.11 Encounter for screening for malignant neoplasm of colon (principal); D12.0 Benign neoplasm of cecum; Z79.02 Long term (current) use of antithrombotics/antiplatelets; Z79.1 Long term (current) use of non-steroidal anti-inflammatories (NSAID); Z79.899 Other long term (current) drug therapy; Z88.0 Allergy status to penicillin

== ENCOUNTER → 2022-11-06 | Outpatient (CLI) | payer OTHER ==
[~2022-11-06] MED LIST changes: -NS 1,000 ML IV ONE; +PROHANCE 279.3MG/ML 15ML VIAL As Ordered ONE
== END ==
LOC: M RAD 15:36
PROVIDERS: ATTEND Nurse Practitioner Family
DX: Z12.39 Encounter for other screening for malignant neoplasm of breast (principal); Z80.3 Family history of malignant neoplasm of breast
CPT/HCPCS: A9576; C8908

== ENCOUNTER → 2022-12-09 | Outpatient (CLI) | payer OTHER ==
[~2022-12-09] MED LIST changes: -PROHANCE 279.3MG/ML 15ML VIAL As Ordered ONE
[2022-12-10 04:16] LABS: THYROID STIMULATING HORMONE 2.421 uIU/ML (0.55-4.78)
[2022-12-10 04:17] LABS: TOTAL 25(OH) VITAMIN D 38.4 NG/ML (20.0-100.0)
[2022-12-10 04:19] LABS: FREE T4 0.99 NG/DL (0.89-1.76)
[2022-12-10 04:22] LABS: CHOLESTEROL RISK RATIO 4.35 (<5); HDL CHOLESTEROL 43.4 MG/DL (>40); LDL CHOLESTEROL 128.4 MG/DL (<100); NON-HDL-C 145.6 MG/DL
== END ==
LOC: M WUC 08:25
PROVIDERS: ATTEND Physician Assistant
DX: R55 Syncope and collapse (principal); E78.2 Mixed hyperlipidemia; I10 Essential (primary) hypertension

== ENCOUNTER 2023-04-11 08:16 | Day surgery (SDC) | payer OTHER ==
[~2023-04-11] VITALS: Ht 154.9 cm; Wt 72.2 kg
[2023-04-11] MEDS: NS 1,000 ML IV ONE (08:33)
[2023-04-11 10:11] VITALS: TEMP 97.2
[2023-04-11 10:30] VITALS: BP 105/59; O2SAT 95
== END 2023-04-11 10:55 | disposition home or self-care (01) ==
LOC: M OPP 08:16
PROVIDERS: ATTEND Surgery
DX: Z86.010 Personal history of colon polyps (principal); D12.0 Benign neoplasm of cecum; K64.0 First degree hemorrhoids; K57.30 Diverticulosis of large intestine without perforation or abscess without bleeding; Z87.891 Personal history of nicotine dependence; Z79.02 Long term (current) use of antithrombotics/antiplatelets; Z79.899 Other long term (current) drug therapy

== ENCOUNTER → 2023-06-02 | Outpatient (CLI) | payer OTHER | LOC: M WHC 09:16 | PROVIDERS: ATTEND Nurse Practitioner Family | DX: Z12.31 Encounter for screening mammogram for malignant neoplasm of breast (principal); Z80.3 Family history of malignant neoplasm of breast ==

== ENCOUNTER → 2024-01-19 | Outpatient (REF) | payer OTHER ==
[2024-01-19 11:45] LABS: BASO # 0.1 10^3/uL (0.0-0.2); BASO % 0.9 % (0.0-1.0); EOS # 0.2 10^3/uL (0.0-0.5); EOS % 2.8 % (0.0-3.0); HEMATOCRIT 42.7 % (36.0-47.0); LYMPH % 29.7 % (24.0-44.0); MEAN CORPUSCULAR HEMOGLOBIN 30.8 pg (27.0-33.0); MEAN CORPUSCULAR HGB CONC 32.8 g/dl (32.0-36.5); MEAN CORPUSCULAR VOLUME 93.8 fl (80.0-96.0); MONO # 0.6 10^3/uL (0.0-0.8); MONO % 8.5 % (2.0-8.0); NEUTROPHILS # 3.9 10^3/uL (1.5-8.5); NEUTROPHILS % 57.8 % (36.0-66.0); PLATELET COUNT, AUTOMATED 261 10^3/uL (150-450); RED BLOOD COUNT 4.55 10^6/uL (4.00-5.40); WHITE BLOOD COUNT 6.7 10^3/uL (4.0-10.0)
[2024-01-19 11:51] LABS: ALBUMIN 3.8 G/DL (3.2-5.2); ALKALINE PHOSPHATASE 112 U/L (35-104); ALT/SGPT 24 U/L (7.0-40); AST/SGOT 14 U/L (<34); BILIRUBIN,TOTAL 0.3 MG/DL (0.3-1.2); BLOOD UREA NITROGEN 12 MG/DL (9-23); CALCIUM LEVEL 9.8 MG/DL (8.5-10.1); CARBON DIOXIDE LEVEL 29 MMOL/L (20-31); CHLORIDE LEVEL 107 MMOL/L (98-107); CHOLESTEROL LEVEL 218 MG/DL (<200); CHOLESTEROL RISK RATIO 4.89 (<5); CREATININE FOR GFR 0.69 MG/DL (0.55-1.30); GLOMERULAR FILTRATION RATE > 60.0 (>51); GLUCOSE, FASTING 91 MG/DL (60-100); HDL CHOLESTEROL 44.5 MG/DL (>40); LDL CHOLESTEROL 159.3 MG/DL (<100); NON-HDL-C 173.5 MG/DL; POTASSIUM SERUM 4.4 MMOL/L (3.5-5.1); SODIUM LEVEL 142 MMOL/L (136-145); TOTAL PROTEIN 7.3 G/DL (5.7-8.2); TRIGLYCERIDES LEVEL 71 MG/DL (<150)
[2024-01-19 11:52] LABS: THYROID STIMULATING HORMONE 1.917 uIU/ML (0.55-4.78)
[2024-01-19 11:53] LABS: TOTAL 25(OH) VITAMIN D 46.9 NG/ML (20.0-100.0)
== END ==
LOC: M SFHCLERA 08:41
DX: E78.2 Mixed hyperlipidemia (principal); I10 Essential (primary) hypertension; Z76.89 Persons encountering health services in other specified circumstances

== ENCOUNTER → 2025-02-08 | Outpatient (CLI) | payer OTHER ==
[~2025-02-08] MED LIST changes: +LISI40TA10 PO; -LISI40TA4 PO
== END ==
LOC: M WHC 14:45
PROVIDERS: ATTEND Nurse Practitioner Family
DX: Z12.31 Encounter for screening mammogram for malignant neoplasm of breast (principal); R92.313 Mammographic fatty tissue density, bilateral breasts; Z80.3 Family history of malignant neoplasm of breast